=== PATIENT | male | born 1940 | race Caucasian/White ===

== ENCOUNTER 2017-02-23 07:48 | Day surgery (SDC) | payer OTHER ==
[~2017-02-23 07:48] MED LIST: PROPOFOL INJ 200 MG/20 ML VIAL IV ONE
[2017-02-23 09:44] VITALS: BP 113/96
--- NOTE | 2017-02-23 12:55 | Operative Report ---
Operative Report DATE OF SURGERY: 02/23/17 Operative Report: The risks, benefits and alternatives of the procedure including risks of bleeding, perforation requiring surgery are explained to the patient detail and informed consent is obtained. Patient was taken back to the endoscopy suite and placed in the left, lateral decubital position. Timeout was called. Propofol medication is provided. A rectal examination was done which did not reveal any masses, tears or fissures. An Olympus videoscope was inserted into the patient's rectum. The scope was then carefully advanced all the way to the cecum. The cecum was identified by the usual anatomical landmarks including the ileocecal valve as well as the appendiceal office. Photodocumentation is obtained. Scope was then sequentially pulled back via the various segments of the colon including the ascending colon, hepatic flexure, transverse colon, splenic flexure, descending colon finding to the rectosigmoid portions of the colon. Retroflexion maneuvers performed. The risks benefits and alternatives of the procedure explained to the patient in detail and informed consent is obtained.A GIF Olympus video scope was inserted into the patient's mouth and hypopharynx, the esophagus is identified intubated and insufflated, the scope was then advanced through the esophagus stomach and duodenum, retroflexion maneuver is done, the esophagus stomach and first and second portions of the duodenum examined PREOPERATIVE DIAGNOSIS: Personal history of colon polyps. Ongoing weight loss with anorexia POSTOPERATIVE DIAGNOSIS: Gastritis, gastric ulcers. Duodenitis, duodenal ulcers. Biopsies obtained to rule out for Helicobacter pylori. Right-sided colon inflammation status post biopsy. Diverticulosis. Internal hemorrhoids OPERATION: Colonoscopy with biopsy. EGD with biopsy SURGEON: PRETTY HERMAN ANESTHESIA: LMAC TISSUE REMOVED OR ALTERED: As noted above. COMPLICATIONS: None. ESTIMATED BLOOD LOSS: None. INTRAOPERATIVE FINDINGS: As noted above. PROCEDURE: Patient tolerated procedure well. No immediate postprocedure complications are noted. Patient discharged in good condition. Discharge date 02/23/2017. Discharge diet: Regular. Discharge activity: Regular. 2-3 week follow-up to discuss findings. Patient is instructed to call the office or proceed to the emergency room should there be any further problems or questions. We will wait on pathology.
== END 2017-02-23 09:55 | disposition home or self-care (01) ==
LOC: END 07:48
PROVIDERS: ATTEND Internal Medicine Gastroenterology
PROC: 0DB98ZX Excision of Duodenum, Via Natural or Artificial Opening Endoscopic, Diagnostic (ICD-10-PCS; 2017-02-23)
PROC: 0DB68ZX Excision of Stomach, Via Natural or Artificial Opening Endoscopic, Diagnostic (ICD-10-PCS; principal; 2017-02-23 09:30)
PROC: 0DBF8ZX Excision of Right Large Intestine, Via Natural or Artificial Opening Endoscopic, Diagnostic (ICD-10-PCS; 2017-02-23 09:30)
DX: Z12.11 Encounter for screening for malignant neoplasm of colon (principal); R63.4 Abnormal weight loss; K29.50 Unspecified chronic gastritis without bleeding; K29.80 Duodenitis without bleeding; K52.9 Noninfective gastroenteritis and colitis, unspecified; K57.30 Diverticulosis of large intestine without perforation or abscess without bleeding; K64.8 Other hemorrhoids; E78.00 Pure hypercholesterolemia, unspecified; I12.9 Hypertensive chronic kidney disease with stage 1 through stage 4 chronic kidney disease, or unspecified chronic kidney disease; N18.3 Chronic kidney disease, stage 3 (moderate); Z85.46 Personal history of malignant neoplasm of prostate; Z79.899 Other long term (current) drug therapy; Z68.38 Body mass index [BMI] 38.0-38.9, adult
CPT/HCPCS: 43239; 45380; 88342 ×2; 88305 ×2; J2704; 810

== ENCOUNTER 2017-05-01 07:10 | Day surgery (SDC) | payer OTHER ==
[2017-05-01] MEDS ORDERED: DIPHENHYDRAMINE HCL 50 MG/ML VIAL ONE (07:27)
[2017-05-01] MEDS ORDERED: NALOXONE HCL INJ/PF 0.4 MG/1 ML SDV ONE (07:28)
[2017-05-01] MEDS ORDERED: ONDANSETRON HCL INJ/PF 4 MG/2 ML SDV ONE (07:28)
[2017-05-01] MEDS ORDERED: FENTANYL CITRATE INJ/PF 100 MCG/2 ML AMPUL ONE (07:29)
[2017-05-01] MEDS ORDERED: GLUCAGON,HUMAN RECOMB 1 MG INJ ONE (07:29)
[2017-05-01] MEDS ORDERED: FLUMAZENIL INJ 0.5 MG/5 ML VIAL ONE (07:29)
[2017-05-01] MEDS ORDERED: EPINEPHRINE INJ 1 MG/10 ML DISP.SYRIN ONE (07:29)
[2017-05-01] MEDS: MIDAZOLAM 2 MG/2 ML INJ ONE ×2 (08:17→08:21)
--- NOTE | 2017-05-01 08:30 | Operative Report ---
Operative Report DATE OF SURGERY: 05/01/17 Operative Report: The risks benefits and alternatives of the procedure explained to the patient in detail and informed consent is obtained.A GIF Olympus video scope was inserted into the patient's mouth and hypopharynx, the esophagus is identified intubated and insufflated, the scope was then advanced through the esophagus stomach and duodenum ,retroflexion maneuver is done, the esophagus stomach and first and second portions of the duodenum examined PREOPERATIVE DIAGNOSIS: Follow-up gastritis POSTOPERATIVE DIAGNOSIS: Gastritis is healing, biopsies obtained. 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 Conscious sedation monitoring time 30 minutes. TISSUE REMOVED OR ALTERED: Gastric mucosal specimen obtained COMPLICATIONS: None. ESTIMATED BLOOD LOSS: None. INTRAOPERATIVE FINDINGS: As noted above. PROCEDURE: Patient tolerated procedure well. No immediate postprocedure complications are noted. Patient discharged in good condition. Discharge date 05/01/2017. Discharge diet: Regular. Discharge activity: Regular. 2-3 week follow-up to discuss findings. Patient is instructed to call the office or proceed to the emergency room should there be any further problems or questions. We will wait on pathology.
[2017-05-01 09:39] VITALS: BP 130/67
== END 2017-05-01 09:40 | disposition home or self-care (01) ==
LOC: END 07:10
PROVIDERS: ATTEND Internal Medicine Gastroenterology
PROC: 0DB98ZX Excision of Duodenum, Via Natural or Artificial Opening Endoscopic, Diagnostic (ICD-10-PCS; 2017-05-01)
PROC: 0DB68ZX Excision of Stomach, Via Natural or Artificial Opening Endoscopic, Diagnostic (ICD-10-PCS; principal; 2017-05-01 08:00)
DX: K31.9 Disease of stomach and duodenum, unspecified (principal); K29.80 Duodenitis without bleeding; I10 Essential (primary) hypertension; Z09 Encounter for follow-up examination after completed treatment for conditions other than malignant neoplasm; Z87.19 Personal history of other diseases of the digestive system
CPT/HCPCS: 43239; 88342 ×2; 88305 ×2; J2250; J3010; J0171; J1200; J1610; J2310; J2405; J3490

== ENCOUNTER 2019-09-21 10:53 | Day surgery (SDC) | payer OTHER ==
[~2019-09-21 10:53] MED LIST changes: +CHONDR SU A NA/HYALUR INTRAOC KIT (SURGICARE) ONE; +EPINEPHRINE INJ/PF 1 MG/1 ML AMPULE ONE; +KETOROLAC TROMETHAMINE 0.45% 4 DROP/0.4 ML DROPERETTE OD PRN; +LIDOCAINE 1%/PHENYLEPHRINE 1.5% 1 ML VIAL ONE; -PROPOFOL INJ 200 MG/20 ML VIAL IV ONE
[2019-09-21] MEDS: CYCLOPENTOLATE 0.2%/PHENYLEPHRINE 1% OPH SOLN 2 ML OD PRN ×3 (11:25→11:45)
[2019-09-21] MEDS: TROPICAMIDE 1% OPH SOLN 15 ML OD PRN ×3 (11:25→11:45)
[2019-09-21] MEDS: BESIFLOXACIN HCL 0.6% OPH SUSP 5 ML BOTTLE OD PRN ×4 (11:25→12:15)
[2019-09-21] MEDS: TETRACAINE HCL 0.5% OPH SOLN 4 ML OD PRN ×3 (11:26→11:50)
[2019-09-21] MEDS ORDERED: MIDAZOLAM 2 MG/2 ML INJ ONE (11:30)
[2019-09-21] MEDS: DORZOLAMIDE HCL 2%/TIMOLOL MALEAT 0.5% OPH SOLN 10 ML OD PRN ×2 (12:15)
--- NOTE | 2019-09-21 13:33 | Operative Report ---
Operative Report-[facility] Operative Report: DATE OF SURGERY: September 21, 2019 PREOPERATIVE DIAGNOSIS: NUCLEAR CATARACT, RIGHT EYE. POSTOPERATIVE DIAGNOSIS: NUCLEAR CATARACT, RIGHT EYE. PROCEDURE PERFORMED: PHACOEMULSIFICATION WITH POSTERIOR CHAMBER INTRAOCULAR LENS IMPLANT, RIGHT EYE. SURGEON: Tino Molina DO MEDICATIONS AND ANESTHESIA: Versed: IV Versed Tetracaine drops: 1 to 2 drops given as needed COMPLICATION: None INDICATIONS FOR SURGERY: Medical necessity: Best corrected visual acuity worse than 20/40 secondary to cataracts with impairment of ability to carry out needs or desired activities, blurred vision, visual distortion, reduced contrast sensitivity and/or glare with association functional impairment and supporting documentation/testing, and cataracts causing symptomatic impairment of visual functions not corrected with tolerable changes in glasses or contact lenses interfering with activities of daily life. PROCEDURE: Consent: The risks, benefits and alternatives of this procedures was discussed with the patient. The patient read and signed the consent forms, was identified and was seated in the exam chair. IOL: MX 60 E 15.0 IOL Diopters: Phacoemulsification with posterior chamber intraocular lens implant: The face was prepped with 5% povidone iodine solution, and a few drops of 5% povidone iodine solution was instilled into the inferior fornix. A non-fenestrated drape was placed over the eye and the lids were parted with the speculum. A paracentesis was made with a 15 degree blade, and 1% lidocaine MPF followed by viscoelastic was injected into the anterior chamber. A 2.4 mm metal micro- keratome was used to create a temporal clear corneal incision. A circular anterior capsulorrhexis was created, followed by hydro-dissection and hydro- delineation. The phacoemulsification hand piece was inserted and the nucleus was removed with the Phaco chop technique. The irrigation-aspiration hand piece was used to remove the residual cortex, and vacuum the posterior capsule. The capsular bag was inflated and viscoelastic and the above-mentioned IOL was injected into the eye with care to insert both leaning and trailing haptics in the capsular bag. The irrigation/aspiration hand piece was reinserted to remove residual viscoelastic from the capsular bag and anterior chamber. The corneal incision was hydrated, and anterior chamber was inflated with sterile BSS via the paracentesis site, and found to be watertight. Postop medication: 1 drop of prednisolone into operative by followed by 1 drop of Cosopt into operative eye followed by 1 drop of Besivance intraoperative by other:
== END 2019-09-21 12:55 | disposition home or self-care (01) ==
LOC: SC 10:53
PROVIDERS: ATTEND Ophthalmology
DX: H25.11 Age-related nuclear cataract, right eye (principal); I10 Essential (primary) hypertension; Z79.899 Other long term (current) drug therapy; Z79.82 Long term (current) use of aspirin; Z87.891 Personal history of nicotine dependence; Z85.46 Personal history of malignant neoplasm of prostate
CPT/HCPCS: 66984; V2632; J2250; J3490 ×2; A9270; J0171; 142

== ENCOUNTER 2019-10-05 11:57 | Day surgery (SDC) | payer OTHER ==
[~2019-10-05 11:57] MED LIST changes: -CHONDR SU A NA/HYALUR INTRAOC KIT (SURGICARE) ONE; -EPINEPHRINE INJ/PF 1 MG/1 ML AMPULE ONE; -KETOROLAC TROMETHAMINE 0.45% 4 DROP/0.4 ML DROPERETTE OD PRN; +KETOROLAC TROMETHAMINE 0.45% 4 DROP/0.4 ML DROPERETTE OS PRN; -LIDOCAINE 1%/PHENYLEPHRINE 1.5% 1 ML VIAL ONE
[2019-10-05] MEDS: CYCLOPENTOLATE 0.2%/PHENYLEPHRINE 1% OPH SOLN 2 ML OS PRN ×3 (12:38→12:54)
[2019-10-05] MEDS: BESIFLOXACIN HCL 0.6% OPH SUSP 5 ML BOTTLE OS PRN ×4 (12:38→13:16)
[2019-10-05] MEDS: TROPICAMIDE 1% OPH SOLN 15 ML OS PRN ×3 (12:38→12:55)
[2019-10-05] MEDS: TETRACAINE HCL 0.5% OPH SOLN 4 ML OS PRN ×3 (12:38→12:57)
[2019-10-05] MEDS ORDERED: FENTANYL CITRATE INJ/PF 100 MCG/2 ML AMPUL ONE (12:39)
[2019-10-05] MEDS ORDERED: MIDAZOLAM 2 MG/2 ML INJ ONE (12:39)
[2019-10-05] MEDS: EPINEPHRINE INJ/PF 1 MG/1 ML AMPULE ONE ×2 (13:02→13:05)
[2019-10-05] MEDS: LIDOCAINE 1%/PHENYLEPHRINE 1.5% 1 ML VIAL ONE ×2 (13:02→13:05)
[2019-10-05] MEDS: CHONDR SU A NA/HYALUR INTRAOC KIT (SURGICARE) ONE ×2 (13:03→13:05)
[2019-10-05] MEDS: DORZOLAMIDE HCL 2%/TIMOLOL MALEAT 0.5% OPH SOLN 10 ML OS PRN ×2 (13:16)
--- NOTE | 2019-10-05 14:06 | Operative Report ---
Operative Report-[facility] Operative Report: DATE OF SURGERY: October 05, 2019 PREOPERATIVE DIAGNOSIS: NUCLEAR CATARACT, LEFT EYE. POSTOPERATIVE DIAGNOSIS: NUCLEAR CATARACT, LEFT EYE. PROCEDURE PERFORMED: PHACOEMULSIFICATION WITH POSTERIOR CHAMBER INTRAOCULAR LENS IMPLANT, LEFT EYE. SURGEON: Tino Molina DO MEDICATIONS AND ANESTHESIA: Versed: IV Versed Tetracaine drops: 1 to 2 drops given as needed COMPLICATION: None INDICATIONS FOR SURGERY: Medical necessity: Best corrected visual acuity worse than 20/40 secondary to cataracts with impairment of ability to carry out needs or desired activities, blurred vision, visual distortion, reduced contrast sensitivity and/or glare with association functional impairment and supporting documentation/testing, and cataracts causing symptomatic impairment of visual functions not corrected with tolerable changes in glasses or contact lenses interfering with activities of daily life. PROCEDURE: Consent: The risks, benefits and alternatives of this procedures was discussed with the patient. The patient read and signed the consent forms, was identified and was seated in the exam chair. IOL: MX 60 E 16.5 IOL Diopters: Phacoemulsification with posterior chamber intraocular lens implant: The face was prepped with 5% povidone iodine solution, and a few drops of 5% povidone iodine solution was instilled into the inferior fornix. A non-fenestrated drape was placed over the eye and the lids were parted with the speculum. A paracentesis was made with a 15 degree blade, and 1% lidocaine MPF followed by viscoelastic was injected into the anterior chamber. A 2.4 mm metal micro- keratome was used to create a temporal clear corneal incision. A circular anterior capsulorrhexis was created, followed by hydro-dissection and hydro- delineation. The phacoemulsification hand piece was inserted and the nucleus was removed with the Phaco chop technique. The irrigation-aspiration hand piece was used to remove the residual cortex, and vacuum the posterior capsule. The capsular bag was inflated and viscoelastic and the above-mentioned IOL was injected into the eye with care to insert both leaning and trailing haptics in the capsular bag. The irrigation/aspiration hand piece was reinserted to remove residual viscoelastic from the capsular bag and anterior chamber. The corneal incision was hydrated, and anterior chamber was inflated with sterile BSS via the paracentesis site, and found to be watertight. Postop medication:1 drop of prednisolone into operative by followed by 1 drop of Cosopt into operative eye followed by 1 drop of Besivance intraoperative by Other:
== END 2019-10-05 14:01 | disposition home or self-care (01) ==
LOC: SC 11:57
PROVIDERS: ATTEND Ophthalmology
DX: H25.12 Age-related nuclear cataract, left eye (principal); Z98.41 Cataract extraction status, right eye; Z79.82 Long term (current) use of aspirin; Z79.899 Other long term (current) drug therapy; Z87.891 Personal history of nicotine dependence; I10 Essential (primary) hypertension; Z85.46 Personal history of malignant neoplasm of prostate
CPT/HCPCS: 66984; V2632; J2250; J3490 ×2; A9270; J0171; 142; J3010

== ENCOUNTER 2020-01-18 13:19 | Inpatient (IN) | payer OTHER, MEDICARE ==
[2020-01-18] MEDS ORDERED: NORMAL SALINE 1000 ML 1,000 ML IV ONE ×2 (14:58→20:22)
--- NOTE | 2020-01-18 15:03 | ER Document Report ---
ED General - General Chief Complaint: Altered Mental Status Stated Complaint: ALTERED MENTAL STATUS Time Seen by Provider: 01/18/20 14:22 Mode of Arrival: Stretcher Information source: Parent Notes: 79-year-old male brought in at the request of his stating that he is becoming more confused over the past 3 days. Patient has a history of dementia. states that she is increasingly having difficulty taking care of him. Coming here to see about getting him placed in a long-term care facility with memory care specialty. She reports that he has been drinking less eating l ess over the past 3 days. Does not note any fevers or chills or vomiting or diarrhea. TRAVEL OUTSIDE OF THE [place] IN LAST 30 DAYS: No - Related Data Allergies/Adverse Reactions: No Known Allergies Allergy (Verified 01/18/20 13:34) Home Medications: Amlod/olmesa, donepezil, lomotil, pantoprazole, sertaline, Zocor, ASA, Echinacea, Glucosamine, theragram, Past Medical History - Social History Smoking Status: Former Smoker Family History: Other - Patient is demented and cannot give an accurate family history Patient has homicidal ideation: No - Past Medical History Cardiac Medical History: Reports: Hx Coronary Artery Disease, Hx Hypertension Denies: Hx Heart Attack Pulmonary Medical History: Denies: Hx Asthma, Hx Bronchitis, Hx COPD, Hx Pneumonia Neurological Medical History: Denies: Hx Cerebrovascular Accident, Hx Seizures GI Medical History: Denies: Hx Hepatitis, Hx Hiatal Hernia, Hx Ulcer Musculoskeletal Medical History: Denies Hx Arthritis Infectious Medical History: Denies: Hx Hepatitis Past Surgical History: Denies: Hx Open Heart Surgery, Hx Pacemaker - Immunizations Hx Diphtheria, Pertussis, Tetanus Vaccination: No - Unsure Review of Systems - Review of Systems Notes: Constitutional: No fevers. No chills. EENT: No eye redness. No eye pain. No ear pain. No sore throat. Cardiovascular: No chest pain. No palpitations. Respiratory: No cough. No shortness of breath. No respiratory distress. Gastrointestinal: No abdominal pain. No nausea, vomiting, or diarrhea. Genitourinary: Atraumatic. No lesions. No pain. No discharge. Musculoskeletal: Atraumatic. No swelling. No deformities. Skin: No rash or lesions. Lymphatic: No swollen lymph nodes. Neurologic: No headache. No syncope. Positive increasing mental decline Psychiatric: No suicidal or homicidal ideation. Physical Exam - Vital signs Vitals: Pulse Ox 88 L 01/18/20 13:29 - Notes Notes: General: Well-developed, well-nourished. In no acute distress. Non-toxic appearing. Cardiac: Well-perfused. Regular rate and rhythm. No murmurs, rubs, or gallops. Pulmonary: No respiratory distress. No cyanosis. Bilateral lung bennett are clear to auscultation. Abdominal: Non-distended. Non-rigid. Bowels sounds are present in all four quadrants. No guarding or rebound. HEENT: Head is atraumatic. Conjunctivae not reddened. No tearing. PERRL. EOMI. Orbits atraumatic. No periorbital swelling or erythema. Oropharynx is without erythema, swelling, or exudates. Tongue does appear quite dry Neck: Supple. No adenopathy. No meningismus. Dermatologic: Warm with good turgor. No rash. Atraumatic. Chest: Atraumatic. No chest wall tenderness to palpation. Musculoskeletal: Moves all extremities well. No range of motion deficits. no muscular or joint tenderness. No paraspinal muscle tenderness. no midline spinal tenderness or step-off. Genitourinary: Examination deferred Neurologic: No gross neurologic deficits. Psychiatric: Normal mood. Course - Re-evaluation Re-evalutation: 01/18/20 15:02 Patient looks actually quite well for his age. Exam does reveal what looks like some dry oral membranes. Possibility of dehydration or hyponatremia naturally. Will check basic labs and a chest x-ray and a urine to see if there is any source for infection that might be driving the worsening mental status decline. 01/18/20 20:19 Discussed the case with Dr. Ge in the ER. Patient does have some dehydration clinically and on his lab work. I discussed the case with Dr. Buchanan the hospitalist this evening and he feels that it is a pretty marginal reason to admit the patient. He did recommend keeping him overnight in the ER for some fluids and let the lead case manager sort out what to do next. - Vital Signs Vital signs: Temp Pulse Resp BP Pulse Ox 97.8 F 90 25 H 115/73 91 L 01/25/20 10:52 01/25/20 10:52 01/25/20 10:52 01/25/20 10:52 01/25/20 10:52 - Laboratory Result Diagrams: 01/25/20 04:42 01/25/20 04:42 Laboratory results interpreted by me: 01/18/20 01/18/20 01/18/20 15:30 16:35 18:32 WBC 2.5 L RBC 4.02 L Hgb Hct MCV 100 H MCH 34.9 H Plt Count [place] % (Auto) 16.2 H Absolute Neuts (auto) 1.5 L Band Neutrophils % Abs Neuts (Manual) Sodium 135.5 L Carbon Dioxide 19 L BUN 41 H Creatinine 1.88 H Est GFR ( Amer) 42 L Est GFR (MDRD) Non-Af 35 L Glucose Calcium AST 71 H ALT 57 H Creatine Kinase NT-Pro-B Natriuret Pep Total Protein Albumin Urine Protein 100 H Urine Ketones 20 H Urine Blood SMALL H Urine Ascorbic Acid 20 H COVID-19 (IAN) 01/19/20 01/20/20 01/20/20 05:16 20:08 20:47 WBC 2.3 L RBC 3.80 L Hgb 13.3 L Hct MCV 101 H MCH 35.0 H Plt Count [place] % (Auto) Absolute Neuts (auto) 1.6 L Band Neutrophils % Abs Neuts (Manual) Sodium 135.1 L Carbon Dioxide 19 L BUN 44 H Creatinine 1.52 H Est GFR ( Amer) 54 L Est GFR (MDRD) Non-Af 44 L Glucose 128 H Calcium AST ALT Creatine Kinase NT-Pro-B Natriuret Pep Total Protein Albumin Urine Protein 30 H Urine Ketones Urine Blood MODERATE H Urine Ascorbic Acid COVID-19 (IAN) 01/20/20 01/20/20 01/21/20 21:02 21:02 07:53 WBC RBC Hgb Hct MCV MCH Plt Count [place] % (Auto) Absolute Neuts (auto) Band Neutrophils % Abs Neuts (Manual) Sodium 130.7 L Carbon Dioxide BUN 33 H Creatinine Est GFR ( Amer) Est GFR (MDRD) Non-Af Glucose 188 H Calcium 8.3 L AST 91 H ALT 69 H Creatine Kinase 356 H NT-Pro-B Natriuret Pep 1580 H Total Protein 6.2 L Albumin 3.3 L Urine Protein Urine Ketones Urine Blood Urine Ascorbic Acid COVID-19 (IAN) DETECTED A 01/21/20 08:47 WBC 2.0 L RBC 3.66 L Hgb 12.6 L Hct 35.6 L MCV MCH 34.3 H Plt Count 147 L [place] % (Auto) Absolute Neuts (auto) Band Neutrophils % 2 L Abs Neuts (Manual) 1.3 L Sodium Carbon Dioxide BUN Creatinine Est GFR ( Amer) Est GFR (MDRD) Non-Af Glucose Calcium AST ALT Creatine Kinase NT-Pro-B Natriuret Pep Total Protein Albumin Urine Protein Urine Ketones Urine Blood Urine Ascorbic Acid COVID-19 (IAN) Discharge - Discharge Clinical Impression: History of dementia, Dehydration, Low oxygen saturation Pneumonia Qualifiers: Pneumonia type: aspiration pneumonia Aspiration pneumonia type: due to gastric secretions Laterality: left Lung location: lower lobe of lung Qualified Code(s): J69.0 - Pneumonitis due to inhalation of food and vomit Condition: Fair Disposition: ADMITTED INPATIENT
--- NOTE | 2020-01-18 15:25 | RADIOLOGY REPORT (SQ) ---
EXAM DESCRIPTION: CHEST SINGLE VIEW IMAGES COMPLETED DATE/TIME: 01/18/2020 3:16 pm REASON FOR STUDY: weakness COMPARISON: None. EXAM PARAMETERS: NUMBER OF VIEWS: One view. TECHNIQUE: Single frontal radiographic view of the chest acquired. RADIATION DOSE: NA LIMITATIONS: None. FINDINGS: LUNGS AND PLEURA: No opacities, masses or pneumothorax. No pleural effusion. MEDIASTINUM AND HILAR STRUCTURES: No masses. Contour normal. HEART AND VASCULAR STRUCTURES: Heart normal in size. Normal vasculature. BONES: No acute findings. HARDWARE: None in the chest. OTHER: No other significant finding. IMPRESSION: NO ACUTE RADIOGRAPHIC FINDING IN THE CHEST. TECHNICAL DOCUMENTATION: JOB ID: [id number] [address] [employer]- All Rights Reserved Reading location - IP/workstation name: [email or web address]
[2020-01-18 15:35] LABS: ABSOLUTE LYMPHOCYTES (AUTO) 0.6 10^3/uL (0.5-4.7); ABSOLUTE MONOCYTES (AUTO) 0.4 10^3/uL (0.1-1.4); ABSOLUTE NEUT (AUTO) 1.5 10^3/uL (1.7-8.2); BASOPHILS % (AUTO) 0.4 % (0-2); EOSINOPHILS % (AUTO) 0.1 % (0-6); HEMATOCRIT 40.2 % (37.9-51.0); LYMPHOCYTES % (AUTO) 22.9 % (13-45); MEAN CORPUSCULAR HEMOGLOBIN 34.9 pg (27.0-33.4); MEAN CORPUSCULAR HGB CONC 34.8 g/dL (32.0-36.0); MEAN CORPUSCULAR VOLUME 100 fl (80-97); MONOCYTES % (AUTO) 16.2 % (3-13); PLATELET COUNT 151 10^3/uL (150-450); RED BLOOD COUNT 4.02 10^6/uL (4.35-5.55); RED CELL DISTRIBUTION WIDTH 13.2 % (11.5-14.0); SEGMENTED NEUTROPHILS % (AUTO) 60.4 % (42-78); TOTAL CELLS COUNTED % (AUTO) 100 %; WHITE BLOOD COUNT 2.5 10^3/uL (4.0-10.5)
[2020-01-18 17:06] LABS: ALBUMIN 4.1 g/dL (3.5-5.0); ALKALINE PHOSPHATASE 48 U/L (38-126); ANION GAP 16 (5-19); ASPARTATE AMINO TRANSFERASE 71 U/L (17-59); BILIRUBIN,DIRECT 0.4 mg/dL (0.0-0.4); BILIRUBIN,TOTAL 0.5 mg/dL (0.2-1.3); BLOOD UREA NITROGEN 41 mg/dL (7-20); CALCIUM 8.7 mg/dL (8.4-10.2); CARBON DIOXIDE 19 mmol/L (22-30); CHLORIDE 101 mmol/L (98-107); GLUCOSE 75 mg/dL (75-110)
[2020-01-18 18:46] LABS: APPEARANCE,URINE SLIGHTLY-CLOUDY; BILIRUBIN,URINE NEGATIVE (NEGATIVE); COLOR,URINE YELLOW; GLUCOSE, URINE NEGATIVE (NEGATIVE); KETONES,URINE 20 mg/dL (NEGATIVE); PROTEIN,URINE 100 mg/dL (NEGATIVE); URINE SPECIFIC GRAVITY 1.018; UROBILINOGEN,URINE NEGATIVE mg/dL (<2.0)
--- NOTE | 2020-01-18 22:06 | EKG REPORT ---
SEVERITY:- ABNORMAL ECG - ATRIAL FIBRILLATION, V-RATE 76-94 NONSPECIFIC T ABNORMALITIES, ANTERIOR LEADS : Confirmed by: Aliyah Gorman 18-Jan-2020 22:05:42
[2020-01-19 05:58] LABS: ANION GAP 14 (5-19); BLOOD UREA NITROGEN 44 mg/dL (7-20); CALCIUM 8.8 mg/dL (8.4-10.2); CARBON DIOXIDE 19 mmol/L (22-30); CHLORIDE 102 mmol/L (98-107); GLUCOSE 128 mg/dL (75-110); POTASSIUM 3.7 mmol/L (3.6-5.0)
--- NOTE | 2020-01-19 18:11 | ER Document Report ---
Doctor's Note Notes: 01/19/20 18:10 The patient is noted to be resting comfortably. I reviewed his chart and lab work and found that he does have a rather high BUN, but reasonably normal creatinine for his age. There are no previous visits here with lab work for comparison. I am told that he will be discharged home Thursday with his and with home hospice to help take care of him at home.
[2020-01-20] MEDS ORDERED: ACETAMINOPHEN 325 MG TABLET PO ONE (17:49)
[2020-01-20] MEDS ORDERED: DEXTROSE 5%-LACTATED RINGERS 1,000 ML IV ONE (17:53)
[2020-01-20] MEDS ORDERED: IPRATROPIUM/ALBUTEROL 0.5-2.5 MG/3 ML AMPUL NEB ONE (17:56)
--- NOTE | 2020-01-20 17:56 | ER Document Report ---
Doctor's Note Notes: 01/20/20 17:54 The plan to discharge patient home with his this morning fell through when it turns out the hospice group that was supposed to take care of him does not provide services in this area. I learned this afternoon that the patient had not been receiving any of his medications, and had not been eating or drinking. I went into reevaluate him and found him resting comfortably, I did notice some wheezes on chest auscultation. His skin is warm and was found to have low-grade fever. The patient does have some mottling to the skin on the anterior thighs and the knees. The skin to the lower extremities is warm to touch. He received Tylenol. Med reconciliation's were done and he will receive the medications he is normally taking at home other than some vitamins and prn medication that is not an essential med this time. I did a more thorough review of patient records that are available he had never had an EKG done here prior to 01/18/2020 and that EKG showed him to be in atrial fibrillation. I cannot tell from medical records if that is a new finding. 01/20/20 19:20 Chest x-ray shows patchy left basilar airspace opacity and mild bilateral interstitial prominence.
--- NOTE | 2020-01-20 18:21 | RADIOLOGY REPORT (SQ) ---
EXAM DESCRIPTION: CHEST SINGLE VIEW IMAGES COMPLETED DATE/TIME: 01/20/2020 6:11 pm REASON FOR STUDY: Fever COMPARISON: 01/18/2020 TECHNIQUE: Single frontal radiographic view of the chest acquired. NUMBER OF VIEWS: One view. LIMITATIONS: None. FINDINGS: LUNGS AND PLEURA: No pneumothorax. Patchy left basilar airspace opacities. Mild intersti tial prominence bilaterally. No significant Pleural effusion. MEDIASTINUM AND HILAR STRUCTURES: Stable. HEART AND VASCULAR STRUCTURES: Stable. BONES: No acute findings. HARDWARE: None in the chest. OTHER: No other significant finding. IMPRESSION: Patchy left basilar airspace opacities. Mild interstitial prominence bilaterally. TECHNICAL DOCUMENTATION: JOB ID: [id number] [place]-[id number] 2010 [employer]- All Rights Reserved Reading location - IP/workstation name: [email or web address]
[2020-01-20 20:20] LABS: ABSOLUTE LYMPHOCYTES (AUTO) 0.5 10^3/uL (0.5-4.7); ABSOLUTE MONOCYTES (AUTO) 0.2 10^3/uL (0.1-1.4); ABSOLUTE NEUT (AUTO) 1.6 10^3/uL (1.7-8.2); BASOPHILS % (AUTO) 0.5 % (0-2); EOSINOPHILS % (AUTO) 0.1 % (0-6); HEMATOCRIT 38.4 % (37.9-51.0); HEMOGLOBIN 13.3 g/dL (13.5-17.0); LYMPHOCYTES % (AUTO) 22.2 % (13-45); MEAN CORPUSCULAR HGB CONC 34.7 g/dL (32.0-36.0); MEAN CORPUSCULAR VOLUME 101 fl (80-97); MONOCYTES % (AUTO) 7.3 % (3-13); PLATELET COUNT 153 10^3/uL (150-450); RED CELL DISTRIBUTION WIDTH 13.6 % (11.5-14.0); SEGMENTED NEUTROPHILS % (AUTO) 69.9 % (42-78); TOTAL CELLS COUNTED % (AUTO) 100 %; WHITE BLOOD COUNT 2.3 10^3/uL (4.0-10.5)
[2020-01-20 21:25] LABS: APPEARANCE,URINE SLIGHTLY-CLOUDY; BILIRUBIN,URINE NEGATIVE (NEGATIVE); COLOR,URINE YELLOW; GLUCOSE, URINE NEGATIVE (NEGATIVE); KETONES,URINE NEGATIVE (NEGATIVE); LEUKOCYTE ESTERASE,URINE NEGATIVE (NEGATIVE); NITRITE,URINE NEGATIVE (NEGATIVE); PROTEIN,URINE 30 mg/dL (NEGATIVE); UROBILINOGEN,URINE NEGATIVE mg/dL (<2.0)
[2020-01-20 21:27] LABS: ALBUMIN 3.3 g/dL (3.5-5.0); ALKALINE PHOSPHATASE 41 U/L (38-126); ANION GAP 7 (5-19); ASPARTATE AMINO TRANSFERASE 91 U/L (17-59); BILIRUBIN,DIRECT 0.3 mg/dL (0.0-0.4); BILIRUBIN,TOTAL 0.4 mg/dL (0.2-1.3); BLOOD UREA NITROGEN 33 mg/dL (7-20); CALCIUM 8.3 mg/dL (8.4-10.2); CARBON DIOXIDE 24 mmol/L (22-30); CHLORIDE 100 mmol/L (98-107); CREATINE KINASE 356 U/L (55-170); GLUCOSE 188 mg/dL (75-110); POTASSIUM 3.6 mmol/L (3.6-5.0); TOTAL PROTEIN 6.2 g/dL (6.3-8.2)
[2020-01-20 21:38] LABS: TROPONIN I 0.026 ng/mL
[2020-01-20] MEDS ORDERED: (PENDING PHARMACY ID) (Donepezil Hcl [Donepezil Hcl] 10 MG) PO SCH (22:00)
[2020-01-20] MEDS ORDERED: (PENDING PHARMACY ID) (Simvastatin [Simvastatin] 20 MG) PO SCH (22:00)
[2020-01-20] MEDS ORDERED: BENAZEPRIL HCL 20 MG TABLET PO ONE (22:00)
[2020-01-20] MEDS ORDERED: AMLODIPINE BESYLATE 5 MG TABLET PO ONE (22:00)
[2020-01-20] MEDS: SIMVASTATIN 10 MG TABLET PO SCH (22:11)
[2020-01-20] MEDS: DONEPEZIL HCL 5 MG TABLET PO SCH (22:12)
[2020-01-21] MEDS ORDERED: NORMAL SALINE 500 ML IV ONE (07:02)
[2020-01-21] MEDS ORDERED: CEFEPIME 2 GM/D5W RTU 2 GM/50 ML RTUPB IV ONE (07:03)
[2020-01-21] MEDS ORDERED: VANCOMYCIN HCL INJ 1000 MG VIAL IV ONE (07:04)
[2020-01-21] MEDS ORDERED: ACETAMINOPHEN 325 MG TABLET PO ONE (07:05)
--- NOTE | 2020-01-21 07:20 | ER Document Report ---
Entered by HUSSEIN MORGAN SCRIBE 01/21/20 0715 Acting as scribe for:JOHNNY HENRIQUEZ MD Doctor's Note Notes: 01/21/20 07:16 Notified this a.m. that patient has a temperature of 102+. Reviewed chart patient received Tylenol yesterday for a low-grade temperature and blood work including blood cultures and chest x-ray were done. Patient's chest x-ray has changed from the previous chest x-ray on 1014 and he now has bibasilar infiltrates infiltrates and opacities. This pneumonia most likely has developed while in the department. Patient is on a social hold pending placement. Patient has history of dementia. Vital signs temperature 102+ see nurses notes and vital signs scheduled for other details. Patient's lungs are diminished in bases and no wheezing mild at this time. Increased expiratory rhonchi. Skin warm to touch. Patient is alert however inaccurate in answering questions. Due to his dementia. Abdomen soft nontender extremities without any edema. Patient has orders now nausea received Tylenol IV fluids 500 mL bolus blood cultures have already been done therefore cefepime and vancomycin has been ordered. Patient also has been placed on continuous monitoring. Assessment and plan new onset pneumonia questionable Covid virus infection. Questionable bacterial pneumonia. Plan today is hospitalist is already requested to visit with patient today to help manage patient as he awaits his placement social placement from the ED. Inasmuch as patient now has fever hypoxia of 90% on room air and a low white blood cell count and pneumonia I will present case to the hospitalist team for admission. I personally performed the services described in the documentation, reviewed and edited the documentation which was dictated to the scribe in my presence, and it accurately records my words and actions.
[2020-01-21 09:17] LABS: HEMATOCRIT 35.6 % (37.9-51.0); HEMOGLOBIN 12.6 g/dL (13.5-17.0); MEAN CORPUSCULAR HEMOGLOBIN 34.3 pg (27.0-33.4); MEAN CORPUSCULAR HGB CONC 35.2 g/dL (32.0-36.0); PLATELET COUNT 147 10^3/uL (150-450); RED BLOOD COUNT 3.66 10^6/uL (4.35-5.55); RED CELL DISTRIBUTION WIDTH 12.9 % (11.5-14.0)
[2020-01-21 09:27] LABS: MEAN CORPUSCULAR VOLUME 97 fl (80-97)
[2020-01-21 09:38] LABS: ABSOLUTE LYMPHOCYTES# (MANUAL) 0.5 10^3/uL (0.5-4.7); ABSOLUTE MONOCYTES # (MANUAL) 0.1 10^3/uL (0.1-1.4); BAND NEUTROPHILS % (MANUAL) 2 % (3-5); BASOPHILS % (MANUAL) 2 % (0-2); EOSINOPHILS % (MANUAL) 0 % (0-6); LYMPHOCYTES % (MANUAL) 26 % (13-45); MONOCYTES % (MANUAL) 6 % (3-13); SEGMENTED NEUTROPHILS % (MAN) 64 % (42-78); TOTAL CELLS COUNTED 50
[2020-01-21 09:39] LABS: OVALOCYTES SLIGHT; PLATELET COMMENT ADEQUATE
--- NOTE | 2020-01-21 09:40 | EKG REPORT ---
SEVERITY:- ABNORMAL ECG - ATRIAL FIBRILLATION, V-RATE 72-99 LEFT AXIS DEVIATION BORDERLINE T ABNORMALITIES, DIFFUSE LEADS : Confirmed by: Aliyah Gorman 21-Jan-2020 09:40:42
[2020-01-21] MEDS ORDERED: (PENDING PHARMACY ID) (Amlodipine Besylate/Benazepril [Amlodipine-Benazepril 5-20 Mg] 1 CA PO SCH (10:00)
[2020-01-21] MEDS ORDERED: SERTRALINE HCL 20 MG PO SCH (10:00)
[2020-01-21] MEDS ORDERED: ONDANSETRON HCL INJ/PF 4 MG/2 ML SDV IV PRN (10:14)
[2020-01-21] MEDS: VITAMIN E (DL, ACETATE) 400 UNIT CAPSULE PO SCH (10:25)
[2020-01-21] MEDS: BENAZEPRIL HCL 20 MG TABLET PO SCH (10:25)
[2020-01-21] MEDS: ASPIRIN 81 MG TABLET, ENT COATED PO SCH (10:25)
[2020-01-21] MEDS: SERTRALINE HCL 50 MG TABLET PO SCH (10:26)
[2020-01-21] MEDS: AMLODIPINE BESYLATE 5 MG TABLET PO SCH (10:26)
[2020-01-21] MEDS: CYANOCOBALAMIN (VITAMIN B-12) 1,000 MCG TABLET PO SCH (10:26)
[2020-01-21] MEDS: ASCORBIC ACID 500 MG TABLET PO SCH (10:26)
[2020-01-21] MEDS: PANTOPRAZOLE SODIUM 40 MG TABLET.DR PO SCH (10:26)
--- NOTE | 2020-01-21 17:19 | PDOC H&P ---
History of Present Illness Admission Date/PCP: 01/21/20 10:57 RIKKI JESUS DO History of Present Illness: HAL ROBIN is a 79 year old male with a history of dementia who was brought here by his a couple of days ago because she could no longer take care of him at home. His dementia combined with his 's frailty and comorbidities made too difficult for her to manage him. He was being held as a social hold in the ER until a placement option could be found. It looks like they were actually planning to consult with hospice. Apparently yesterday evening they had some concern in the ER because they checked a chest x-ray around 1700 hrs. Findings suggestive of pneumonia were noted on the chest x-ray and the ER provider's note. Was also told the patient had a temperature of 100.4 F yesterday evening. No treatment was initiated at that time. They requested a medical consultation overnight. This was passed on to the day shift. When I got the call about the patient this morning, patient had a temperature of 102.1 F and got his first dose of antibiotics around 0700 this morning. Past Medical History Cardiac Medical History: Reports: Coronary Artery Disease, Hypertension Denies: Myocardial Infarction Pulmonary Medical History: Denies: Asthma, Bronchitis, Chronic Obstructive Pulmonary Disease (COPD), Pneumonia Neurological Medical History: Denies: Seizures GI Medical History: Denies: Hepatitis, Hiatal Hernia Musculoskeltal Medical History: Denies: Arthritis Psychiatric Medical History: Denies: Depression - pt confused Hematology: Denies: Anemia, Sickle Cell Disease Past Surgical History Past Surgical History: Denies: Pacemaker Social History Smoking Status: Former Smoker Family History Parental Family History Reviewed: No - Unable to obtain Children Family History Reviewed: No - unAble to obtain Sibling(s) Family History Reviewed.: No - Unable to obtain Medication/Allergy Home Medications: Amlodipine Besylate/Benazepril [Amlodipine-Benazepril 5-20 mg] 1 cap PO DAILY 01/11/14 Simvastatin 20 mg PO QHS 01/11/14 Ascorbic Acid [Vitamin C 500 mg Tablet] 500 mg PO DAILY 09/16/19 Diphenoxylate HCl/Atrop Sulf [Lomotil 2.5 mg Tablet] 1 tab PO Q6HP PRN 09/16/19 Donepezil HCl 10 mg PO QHS 09/16/19 Echinacea 400 mg PO DAILY 09/16/19 Gluc Rodriguez/Chondro Rodriguez A/Vit C/Mn [Glucosamine-Chondroitin Caps] 1 each PO DAILY 09/16/19 Pantoprazole Sodium 40 mg PO DAILY 09/16/19 Aspirin [Ecotrin 81 mg EC Tablet] 81 mg PO DAILY 01/19/20 Cyanocobalamin (Vitamin B-12) [Vitamin B-12 1000 Mcg Tablet] 1,000 mcg PO DAILY 01/19/20 Multivit-Min/FA/Lycopen/Lutein [Centrum Silver Men Tablet] 1 each PO DAILY 01/19/20 Vitamin E (Dl, Acetate) [Vitamin E 400 Unit Capsule] 400 unit PO DAILY 01/19/20 Sertraline HCl [Zoloft 50 mg Tablet] 50 mg PO DAILY 01/20/20 Allergies/Adverse Reactions: No Known Allergies Allergy (Verified 01/18/20 13:34) Review of Systems ROS unobtainable: Due to mental status Physical Exam Vital Signs: Temp Pulse Resp BP Pulse Ox 100.5 F H 85 22 H 146/86 H 99 01/21/20 15:03 01/21/20 15:03 01/21/20 15:03 01/21/20 15:03 01/21/20 15:03 Intake & Output 01/20/20 01/21/20 01/22/20 06:59 06:59 06:59 Intake Total 1000 1000 550 Balance 1000 1000 550 Weight 111 kg General appearance: PRESENT: disheveled, mild distress, morbidly obese, other - He was fidgeting in the bed Head exam: PRESENT: atraumatic, normocephalic Eye exam: PRESENT: EOMI. ABSENT: conjunctival injection, nystagmus, scleral icterus Ear exam: PRESENT: normal external ear exam Mouth exam: PRESENT: dry mucosa, neck supple Teeth exam: PRESENT: poor dentation Neck exam: PRESENT: full ROM. ABSENT: carotid bruit, JVD, lymphadenopathy, meningismus, tenderness, thyromegaly Respiratory exam: PRESENT: rhonchi, symmetrical, tachypnea, unlabored, wheezes - Left lower lobe. ABSENT: accessory muscle use, chest wall tenderness, crackles, prolonged expiratory phas Cardiovascular exam: PRESENT: RRR, +S1, +S2 Pulses: PRESENT: normal carotid pulses Vascular exam: PRESENT: normal capillary refill GI/Abdominal exam: PRESENT: normal bowel sounds, soft. ABSENT: distended, guarding, rebound, tenderness Extremities exam: ABSENT: clubbing, pedal edema Musculoskeletal exam: PRESENT: normal inspection. ABSENT: deformity Neurological exam: PRESENT: awake, oriented to person. ABSENT: oriented to place, oriented to situation Psychiatric exam: PRESENT: anxious Skin exam: PRESENT: warm, other - Sweaty Results Laboratory Results: 01/21/20 08:47 01/20/20 21:02 01/20/20 01/20/20 01/20/20 20:08 20:08 20:47 WBC 2.3 L RBC 3.80 L Hgb 13.3 L Hct 38.4 MCV 101 H MCH 35.0 H MCHC 34.7 RDW 13.6 Plt Count 153 Seg Neutrophils % 69.9 Sodium Potassium Chloride Carbon Dioxide Anion Gap BUN Creatinine Est GFR ( Amer) Est GFR (Non-Af Amer) THERAPIST PHYS Glucose Lactic Acid Calcium Total Bilirubin AST Alkaline Phosphatase Total Protein Albumin Urine Color YELLOW Urine Appearance SLIGHTLY-CLOUDY Urine pH 5.0 Ur Specific [place] 1.020 Urine Protein 30 H Urine Glucose (UA) NEGATIVE Urine Ketones NEGATIVE Urine Blood MODERATE H Urine Nitrite NEGATIVE Ur Leukocyte Esterase NEGATIVE Urine WBC (Auto) 1 Urine RBC (Auto) 3 01/20/20 01/21/20 01/21/20 21:02 08:47 08:47 WBC 2.0 L RBC 3.66 L Hgb 12.6 L Hct 35.6 L MCV 97 D MCH 34.3 H MCHC 35.2 RDW 12.9 Plt Count 147 L Seg Neutrophils % Not Reportable Sodium 130.7 L Potassium 3.6 Chloride 100 Carbon Dioxide 24 Anion Gap 7 BUN 33 H Creatinine 1.15 Est GFR ( Amer) > 60 Est GFR (Non-Af Amer) Glucose 188 H Lactic Acid 0.8 Calcium 8.3 L Total Bilirubin 0.4 AST 91 H Alkaline Phosphatase 41 Total Protein 6.2 L Albumin 3.3 L Urine Color Urine Appearance Urine pH Ur Specific [place] Urine Protein Urine Glucose (UA) Urine Ketones Urine Blood Urine Nitrite Ur Leukocyte Esterase Urine WBC (Auto) Urine RBC (Auto) 01/20/20 01/20/20 21:02 21:02 Creatine Kinase 356 H Troponin I 0.026 NT-Pro-B Natriuret Pep 1580 H Impressions: Chest X-Ray 01/20/20 17:48 IMPRESSION: Patchy left basilar airspace opacities. Mild interstitial prominence bilaterally. Assessment and Plan - Diagnosis (1) Acute hypoxemic respiratory failure Is this a current diagnosis for this admission?: Yes (2) Sepsis Qualifiers: Sepsis type: sepsis due to unspecified organism Sepsis acute organ dysfunction status: with acute organ dysfunction Severe sepsis acute organ dysfunction type: acute respiratory failure Acute respiratory failure type: with hypoxia Severe sepsis shock status: without septic shock Qualified Code(s): A41.9 - Sepsis, unspecified organism; R65.20 - Severe sepsis without septic shock; J96.01 - Acute respiratory failure with hypoxia Is this a current diagnosis for this admission?: Yes (3) History of dementia Is this a current diagnosis for this admission?: Yes (4) Pneumonia Qualifiers: Pneumonia type: aspiration pneumonia Aspiration pneumonia type: due to gastric secretions Laterality: left Lung location: lower lobe of lung Qualified Code(s): J69.0 - Pneumonitis due to inhalation of food and vomit Is this a current diagnosis for this admission?: Yes (5) Hyponatremia Is this a current diagnosis for this admission?: Yes (6) Leukopenia Qualifiers: Leukopenia type: other Qualified Code(s): D72.818 - Other decreased white blood cell count Is this a current diagnosis for this admission?: Yes - Plan Summary Summary: Given the patient's history of dementia, I suspect that he may have aspirated, possibly his own oral secretions. He did not have any evidence of pneumonia whenever he came into the hospital and he had been in the same room the whole time in the ER. He was requiring 2 L of oxygen per nasal cannula because his room air saturations were 88%. We will put him on Rocephin and azithromycin for the time being. If he does not respond we will consider changing him to Zosyn. We will give him some IV fluids. We will also give him nebulizer treatments. We will hold off on steroids for now. His wheezing improved whenever we set him up in the bed a little bit more and his upper airway was able to open up. - Time Time Spent with patient: 35 or more minutes Anticipated Discharge Disposition: Pending clinical course Anticipated Discharge Timeframe: Pending clinical course - Inpatient Certification Based on my medical assessment, after consideration of the patient's comorbidities, presenting symptoms, or acuity I expect that the services needed warrant INPATIENT care.: Yes Medical Necessity: Significant Comorbidiites Make Outpatient Treatment Too Risky, Need Close Monitoring Due to Risk of Patient Decompensation, Need For IV Fluids, Need For Continuous Telemetry Monitoring, Need for Nebulizer Therapy and Monitoring of Response, Need for IV Antibiotics, Risk of Complication if Not Cared For in Hospital
[2020-01-21] MEDS: HEPARIN SOD (PORCINE) 5,000 UNIT/ML 1 ML VIAL SUBCUT SCH ×2 (17:27→22:24)
[2020-01-21] MEDS: AZITHROMYCIN 500 MG in DEXTROSE 5%-WATER 250 ML IV SCH (18:39)
[2020-01-21] MEDS: SIMVASTATIN 10 MG TABLET PO SCH (22:24)
[2020-01-21] MEDS: DONEPEZIL HCL 5 MG TABLET PO SCH (22:24)
[2020-01-22] MEDS: IPRATROPIUM/ALBUTEROL 0.5-2.5 MG/3 ML AMPUL NEB PRN ×2 (03:19→21:06)
[2020-01-22] MEDS: HEPARIN SOD (PORCINE) 5,000 UNIT/ML 1 ML VIAL SUBCUT SCH ×3 (05:23→21:06)
[2020-01-22 06:43] LABS: HEMATOCRIT 36.2 % (37.9-51.0); MEAN CORPUSCULAR HEMOGLOBIN 35.8 pg (27.0-33.4); MEAN CORPUSCULAR HGB CONC 35.9 g/dL (32.0-36.0); MEAN CORPUSCULAR VOLUME 100 fl (80-97); PLATELET COUNT 159 10^3/uL (150-450); RED BLOOD COUNT 3.63 10^6/uL (4.35-5.55); RED CELL DISTRIBUTION WIDTH 13.1 % (11.5-14.0); WHITE BLOOD COUNT 2.6 10^3/uL (4.0-10.5)
[2020-01-22 07:10] LABS: ANION GAP 9 (5-19); BLOOD UREA NITROGEN 27 mg/dL (7-20); CALCIUM 8.3 mg/dL (8.4-10.2); CARBON DIOXIDE 24 mmol/L (22-30); CHLORIDE 100 mmol/L (98-107); GLUCOSE 104 mg/dL (75-110); POTASSIUM 3.9 mmol/L (3.6-5.0)
[2020-01-22] MEDS: BENAZEPRIL HCL 20 MG TABLET PO SCH (09:03)
[2020-01-22] MEDS: PANTOPRAZOLE SODIUM 40 MG TABLET.DR PO SCH (09:03)
[2020-01-22] MEDS: CYANOCOBALAMIN (VITAMIN B-12) 1,000 MCG TABLET PO SCH (09:03)
[2020-01-22] MEDS: ASPIRIN 81 MG TABLET, ENT COATED PO SCH (09:03)
[2020-01-22] MEDS: AMLODIPINE BESYLATE 5 MG TABLET PO SCH (09:03)
[2020-01-22] MEDS: ASCORBIC ACID 500 MG TABLET PO SCH (09:03)
[2020-01-22] MEDS: SERTRALINE HCL 50 MG TABLET PO SCH (09:03)
[2020-01-22] MEDS: ACETAMINOPHEN 325 MG TABLET PO PRN (09:04)
[2020-01-22] MEDS: CEFTRIAXONE 1 GM/D5W RTU 1 GM/50 ML RTUPB IV SCH (09:05)
[2020-01-22] MEDS: VITAMIN E (DL, ACETATE) 400 UNIT CAPSULE PO SCH (11:52)
[2020-01-22] MEDS: METHYLPREDNISOLONE INJ 40 MG/1 ML SDV IV SCH ×2 (11:53→21:52)
--- NOTE | 2020-01-22 12:28 | PDOC PROGRESS REPORT ---
Subjective Progress Note for:: 01/22/20 Subjective:: No adverse events overnight. No new complaints. Patient is still intermittently febrile. His breathing is about the same. He is oxygenating at about the same level. His creatinine is up a bit but overall decreased from when he came in, and may actually be his baseline. Reason For Visit: SEPSIS, LLL PNA Physical Exam Vital Signs: Temp Pulse Resp BP Pulse Ox 101.8 F H 92 24 H 121/60 91 L 01/22/20 08:47 01/22/20 08:47 01/22/20 08:47 01/22/20 08:47 01/22/20 08:47 Intake & Output 01/21/20 01/22/20 01/23/20 06:59 06:59 06:59 Intake Total 1000 1160 Balance 1000 1160 Weight 111.3 kg General appearance: PRESENT: disheveled, mild distress, morbidly obese Respiratory exam: PRESENT: rhonchi, symmetrical, tachypnea, unlabored, wheezes - Left lower lobe. ABSENT: accessory muscle use, chest wall tenderness, crackles, prolonged expiratory phas Cardiovascular exam: PRESENT: RRR, +S1, +S2 Pulses: PRESENT: normal carotid pulses Vascular exam: PRESENT: normal capillary refill GI/Abdominal exam: PRESENT: normal bowel sounds, soft. ABSENT: distended, guarding, rebound, tenderness Extremities exam: ABSENT: clubbing, pedal edema Musculoskeletal exam: PRESENT: normal inspection. ABSENT: deformity Neurological exam: PRESENT: awake, oriented to person. ABSENT: oriented to place, oriented to situation Results Laboratory Results: 01/22/20 06:05 01/22/20 06:05 01/22/20 01/22/20 06:05 06:05 WBC 2.6 L RBC 3.63 L Hgb 13.0 L Hct 36.2 L MCV 100 H MCH 35.8 H MCHC 35.9 RDW 13.1 Plt Count 159 Sodium 132.8 L Potassium 3.9 Chloride 100 Carbon Dioxide 24 Anion Gap 9 BUN 27 H Creatinine 1.28 H Est GFR ( Amer) > 60 Glucose 104 Calcium 8.3 L 01/20/20 01/20/20 21:02 21:02 Creatine Kinase 356 H Troponin I 0.026 NT-Pro-B Natriuret Pep 1580 H Impressions: Chest X-Ray 01/20/20 17:48 IMPRESSION: Patchy left basilar airspace opacities. Mild interstitial prominence bilaterally. Assessment and Plan - Diagnosis (1) Acute hypoxemic respiratory failure Is this a current diagnosis for this admission?: Yes (2) Sepsis Qualifiers: Sepsis type: sepsis due to unspecified organism Sepsis acute organ dysfunction status: with acute organ dysfunction Severe sepsis acute organ dysfunction type: acute respiratory failure Acute respiratory failure type: with hypoxia Severe sepsis shock status: without septic shock Qualified Code(s): A41.9 - Sepsis, unspecified organism; R65.20 - Severe sepsis without septic shock; J96.01 - Acute respiratory failure with hypoxia Is this a current diagnosis for this admission?: Yes (3) History of dementia Is this a current diagnosis for this admission?: Yes (4) Pneumonia Qualifiers: Pneumonia type: aspiration pneumonia Aspiration pneumonia type: due to gastric secretions Laterality: left Lung location: lower lobe of lung Qualified Code(s): J69.0 - Pneumonitis due to inhalation of food and vomit Is this a current diagnosis for this admission?: Yes (5) Hyponatremia Is this a current diagnosis for this admission?: Yes (6) Leukopenia Qualifiers: Leukopenia type: other Qualified Code(s): D72.818 - Other decreased white blood cell count Is this a current diagnosis for this admission?: Yes - Plan Summary Summary: Continue with his current antibiotics. His coronavirus test was done while he was in the ER and that is pending. He does not appear to have deteriorated clin ically overnight. Added an influenza screen. He still wheezing a little bit so I added some steroids today. - Time Time Spent with patient: 15-24 minutes Anticipated Discharge Disposition: Assisted Care Facility Anticipated Discharge Timeframe: Pending clinical course
[2020-01-22 17:10] LABS: A TYPE INFLUENZA AG NEGATIVE (NEGATIVE); B INFLUENZA AG NEGATIVE (NEGATIVE)
[2020-01-22] MEDS: AZITHROMYCIN 500 MG in DEXTROSE 5%-WATER 250 ML IV SCH (18:34)
[2020-01-22] MEDS: DONEPEZIL HCL 5 MG TABLET PO SCH (21:52)
[2020-01-22] MEDS: SIMVASTATIN 10 MG TABLET PO SCH (21:53)
[2020-01-23] MEDS: HEPARIN SOD (PORCINE) 5,000 UNIT/ML 1 ML VIAL SUBCUT SCH ×3 (05:38→21:12)
[2020-01-23] MEDS ORDERED: NORMAL SALINE 250 ML IV PRN (08:24)
[2020-01-23 09:04] LABS: HEMATOCRIT 38.3 % (37.9-51.0); HEMOGLOBIN 13.6 g/dL (13.5-17.0); MEAN CORPUSCULAR HEMOGLOBIN 34.6 pg (27.0-33.4); MEAN CORPUSCULAR HGB CONC 35.5 g/dL (32.0-36.0); MEAN CORPUSCULAR VOLUME 97 fl (80-97); PLATELET COUNT 184 10^3/uL (150-450); RED BLOOD COUNT 3.93 10^6/uL (4.35-5.55); WHITE BLOOD COUNT 3.1 10^3/uL (4.0-10.5)
[2020-01-23 09:22] LABS: CARBON DIOXIDE 20 mmol/L (22-30)
[2020-01-23 09:39] LABS: ANION GAP 12 (5-19); BLOOD UREA NITROGEN 34 mg/dL (7-20); CALCIUM 8.6 mg/dL (8.4-10.2); CHLORIDE 101 mmol/L (98-107); GLUCOSE 153 mg/dL (75-110); POTASSIUM 3.7 mmol/L (3.6-5.0)
[2020-01-23] MEDS: ASPIRIN 81 MG TABLET, ENT COATED PO SCH (10:54)
[2020-01-23] MEDS: PANTOPRAZOLE SODIUM 40 MG TABLET.DR PO SCH (10:55)
[2020-01-23] MEDS: BENAZEPRIL HCL 20 MG TABLET PO SCH (10:55)
[2020-01-23] MEDS: AMLODIPINE BESYLATE 5 MG TABLET PO SCH (10:55)
[2020-01-23] MEDS: DEXAMETHASONE SOD PHOS INJ 10 MG/1 ML VIAL IV SCH (10:55)
[2020-01-23] MEDS: CEFTRIAXONE 1 GM/D5W RTU 1 GM/50 ML RTUPB IV SCH (10:55)
[2020-01-23] MEDS: CYANOCOBALAMIN (VITAMIN B-12) 1,000 MCG TABLET PO SCH (10:55)
[2020-01-23] MEDS: SERTRALINE HCL 50 MG TABLET PO SCH (10:55)
[2020-01-23] MEDS: ASCORBIC ACID 500 MG TABLET PO SCH (10:57)
[2020-01-23] MEDS: VITAMIN E (DL, ACETATE) 400 UNIT CAPSULE PO SCH (10:57)
[2020-01-23] MEDS ORDERED: REMDESIVIR (EUA) 200 MG in NORMAL SALINE 250 ML IV ONE (11:00)
--- NOTE | 2020-01-23 13:19 | PDOC PROGRESS REPORT ---
Subjective Progress Note for:: 01/23/20 Subjective:: No adverse events at night. No new complaints. He is up to 4 L on the nasal cannula. Vital signs otherwise stable. Has been afebrile. Coronavirus test has come back positive. We change his steroids to Decadron and started antiviral treatment. He is eating and drinking without difficulty. Reason For Visit: SEPSIS, LLL PNA Physical Exam Vital Signs: Temp Pulse Resp BP Pulse Ox 97.7 F 87 22 H 106/82 89 L 01/23/20 12:11 01/23/20 12:11 01/23/20 12:11 01/23/20 12:11 01/23/20 12:11 Intake & Output 01/22/20 01/23/20 01/24/20 06:59 06:59 06:59 Intake Total 1160 870 Output Total 375 Balance 1160 495 Weight 111.3 kg 112.5 kg General appearance: PRESENT: disheveled, no apparent distress, morbidly obese Respiratory exam: PRESENT: rhonchi, symmetrical, tachypnea, unlabored. ABSENT: accessory muscle use, chest wall tenderness, crackles, prolonged expiratory phase, wheezes Cardiovascular exam: PRESENT: RRR, +S1, +S2 Pulses: PRESENT: normal carotid pulses Vascular exam: PRESENT: normal capillary refill GI/Abdominal exam: PRESENT: normal bowel sounds, soft. ABSENT: distended, guarding, rebound, tenderness Extremities exam: ABSENT: clubbing, pedal edema Musculoskeletal exam: PRESENT: normal inspection. ABSENT: deformity Neurological exam: PRESENT: awake, oriented to person. ABSENT: oriented to place, oriented to situation Results Laboratory Results: 01/23/20 07:57 01/23/20 07:57 01/23/20 01/23/20 01/23/20 07:57 07:57 09:05 WBC 3.1 L RBC 3.93 L Hgb 13.6 Hct 38.3 MCV 97 MCH 34.6 H MCHC 35.5 RDW 13.0 Plt Count 184 Sodium 133.3 L Potassium 3.7 Chloride 101 Carbon Dioxide 20 L Anion Gap 12 BUN 34 H Creatinine 1.29 H Est GFR ( Amer) > 60 Glucose 153 H Calcium 8.6 Blood Type O POSITIVE 01/20/20 01/20/20 21:02 21:02 Creatine Kinase 356 H Troponin I 0.026 NT-Pro-B Natriuret Pep 1580 H Impressions: Chest X-Ray 01/20/20 17:48 IMPRESSION: Patchy left basilar airspace opacities. Mild interstitial prominence bilaterally. Assessment and Plan - Diagnosis (1) Acute hypoxemic respiratory failure Is this a current diagnosis for this admission?: Yes (2) Sepsis Qualifiers: Sepsis type: sepsis due to unspecified organism Sepsis acute organ dysfunction status: with acute organ dysfunction Severe sepsis acute organ dysfunction type: acute respiratory failure Acute respiratory failure type: with hypoxia Severe sepsis shock status: without septic shock Qualified Code(s): A41.9 - Sepsis, unspecified organism; R65.20 - Severe sepsis without septic shock; J96.01 - Acute respiratory failure with hypoxia Is this a current diagnosis for this admission?: Yes (3) History of dementia Is this a current diagnosis for this admission?: Yes (4) Pneumonia Qualifiers: Pneumonia type: aspiration pneumonia Aspiration pneumonia type: due to gastric secretions Laterality: left Lung location: lower lobe of lung Qualified Code(s): J69.0 - Pneumonitis due to inhalation of food and vomit Is this a current diagnosis for this admission?: Yes (5) Hyponatremia Is this a current diagnosis for this admission?: Yes (6) Leukopenia Qualifiers: Leukopenia type: other Qualified Code(s): D72.818 - Other decreased white blood cell count Is this a current diagnosis for this admission?: Yes - Plan Summary Summary: Continue with his current antibiotics. His coronavirus test was done while he was in the ER and that has turned out to be positive. We have switched his steroids over to Decadron. Have added remdesivir and convalescent plasma. Speech therapy tested him and said he was okay for thin liquids. - Time Time Spent with patient: 15-24 minutes Anticipated Discharge Disposition: Group Home Facility Anticipated Discharge Timeframe: Pending clinical course
[2020-01-23 13:29] LABS: PATH REVIEW PATHOLOGIST REVIEWED
[2020-01-23] MEDS ORDERED: ONDANSETRON HCL INJ/PF 4 MG/2 ML SDV IV PRN (15:00)
[2020-01-23] MEDS: AZITHROMYCIN 500 MG in DEXTROSE 5%-WATER 250 ML IV SCH (17:07)
[2020-01-23] MEDS: SIMVASTATIN 10 MG TABLET PO SCH (21:12)
[2020-01-23] MEDS: DONEPEZIL HCL 5 MG TABLET PO SCH (21:13)
[2020-01-24 05:31] LABS: ANION GAP 10 (5-19); BLOOD UREA NITROGEN 42 mg/dL (7-20); CALCIUM 8.9 mg/dL (8.4-10.2); CARBON DIOXIDE 25 mmol/L (22-30); CHLORIDE 101 mmol/L (98-107); GLUCOSE 125 mg/dL (75-110); POTASSIUM 3.8 mmol/L (3.6-5.0)
[2020-01-24 05:39] LABS: HEMATOCRIT 42.5 % (37.9-51.0); HEMOGLOBIN 15.3 g/dL (13.5-17.0); MEAN CORPUSCULAR HGB CONC 35.9 g/dL (32.0-36.0); MEAN CORPUSCULAR VOLUME 98 fl (80-97); PLATELET COUNT 191 10^3/uL (150-450); RED BLOOD COUNT 4.36 10^6/uL (4.35-5.55); RED CELL DISTRIBUTION WIDTH 13.1 % (11.5-14.0)
[2020-01-24] MEDS: HEPARIN SOD (PORCINE) 5,000 UNIT/ML 1 ML VIAL SUBCUT SCH ×3 (05:58→22:26)
[2020-01-24] MEDS: SERTRALINE HCL 50 MG TABLET PO SCH (09:38)
[2020-01-24] MEDS: ASCORBIC ACID 500 MG TABLET PO SCH (09:38)
[2020-01-24] MEDS: AMLODIPINE BESYLATE 5 MG TABLET PO SCH (09:38)
[2020-01-24] MEDS: PANTOPRAZOLE SODIUM 40 MG TABLET.DR PO SCH (09:38)
[2020-01-24] MEDS: DEXAMETHASONE SOD PHOS INJ 10 MG/1 ML VIAL IV SCH (09:39)
[2020-01-24] MEDS: BENAZEPRIL HCL 20 MG TABLET PO SCH (09:39)
[2020-01-24] MEDS: ASPIRIN 81 MG TABLET, ENT COATED PO SCH (09:39)
[2020-01-24] MEDS: CEFTRIAXONE 1 GM/D5W RTU 1 GM/50 ML RTUPB IV SCH (09:39)
[2020-01-24] MEDS: CYANOCOBALAMIN (VITAMIN B-12) 1,000 MCG TABLET PO SCH (09:39)
[2020-01-24] MEDS: VITAMIN E (DL, ACETATE) 400 UNIT CAPSULE PO SCH (09:41)
[2020-01-24] MEDS: REMDESIVIR (EUA) 100 MG in NORMAL SALINE 250 ML IV SCH (09:47)
--- NOTE | 2020-01-24 17:14 | PDOC PROGRESS REPORT ---
Subjective Progress Note for:: 01/24/20 Subjective:: The patient is an 79-year-old male with a past medical history of dementia who was admitted 01/21/2020 for acute hypoxic respiratory failure and sepsis secondary to pneumonia; subsequently found to have COVID-19. Patient was seen on afternoon rounds. He is resting in bed, comfortably, on Oxymizer at 10 L/min. It appears that over the last 48 hours the patient has had increased oxygen demand with an SPO2 consistently 87-91. No associated tachypnea or fever. T-max 101.8/72 hours. Afebrile x48 Patient was sleeping but woke easily when I said his name. He is oriented to self. He is pleasantly confused; seems to think he knows me. He denies all symptoms currently; specifically fever, chest pain, dyspnea, abdominal pain, nausea and vomiting. He has no questions or concerns at this time. No concerns per nursing. Reason For Visit: SEPSIS, LLL PNA Physical Exam Vital Signs: Temp Pulse Resp BP Pulse Ox 97.5 F 93 18 116/82 91 L 01/24/20 12:21 01/24/20 14:00 01/24/20 12:21 01/24/20 12:21 01/24/20 12:21 Intake & Output 01/23/20 01/24/20 01/25/20 06:59 06:59 06:59 Intake Total 870 1440 320 Output Total 375 725 180 Balance 495 715 140 Weight 112.5 kg 111.3 kg General appearance: PRESENT: no acute distress, cooperative, well-developed, well-nourished - oveerweight Head exam: PRESENT: atraumatic, normocephalic Eye exam: PRESENT: conjunctiva pink, EOMI, PERRLA. ABSENT: scleral icterus Mouth exam: PRESENT: moist, tongue midline Respiratory exam: PRESENT: clear to auscultation mariana, symmetrical, unlabored, other - Omental oxygen by nasal cannula. ABSENT: rales, rhonchi, wheezes Cardiovascular exam: PRESENT: RRR. ABSENT: diastolic murmur, rubs, systolic murmur Vascular exam: PRESENT: normal capillary refill GI/Abdominal exam: PRESENT: normal bowel sounds, soft. ABSENT: distended, guarding, mass, organolmegaly, rebound, tenderness Rectal exam: PRESENT: deferred Extremities exam: PRESENT: full ROM. ABSENT: calf tenderness, clubbing, pedal edema Neurological exam: PRESENT: alert, awake, oriented to person, CN II-XII grossly intact, other - Pleasantly confused. ABSENT: motor sensory deficit Psychiatric exam: PRESENT: appropriate affect, normal mood. ABSENT: homicidal ideation, suicidal ideation Skin exam: PRESENT: dry, intact, warm. ABSENT: cyanosis, rash Results Laboratory Results: 01/24/20 05:03 01/24/20 05:03 01/24/20 01/24/20 05:03 05:03 WBC 6.0 RBC 4.36 Hgb 15.3 Hct 42.5 MCV 98 H MCH 35.0 H MCHC 35.9 RDW 13.1 Plt Count 191 Sodium 136.2 L Potassium 3.8 Chloride 101 Carbon Dioxide 25 Anion Gap 10 BUN 42 H Creatinine 1.09 Est GFR ( Amer) > 60 Glucose 125 H Calcium 8.9 01/20/20 21:02 Blood Blood Culture (PCR) - Final 01/20/20 21:02 Blood Blood Culture - Final Staphylococcus Hominis 01/20/20 01/20/20 21:02 21:02 Creatine Kinase 356 H Troponin I 0.026 NT-Pro-B Natriuret Pep 1580 H Impressions: Chest X-Ray 01/20/20 17:48 IMPRESSION: Patchy left basilar airspace opacities. Mild interstitial prominence bilaterally. Assessment and Plan - Diagnosis (1) COVID-19 Is this a current diagnosis for this admission?: Yes Plan: Covid positive We will check d-dimer, ferritin, CRP, LDH with a.m. lab work. Provide supplemental oxygen as needed maintain saturations greater than 89%. As needed nebulizer treatments. Continue IV azithromycin Continue remdesivir Provide 1 unit convalescent serum Continue daily dexamethasone Zinc, vitamin D, vitamin C, and melatonin supplementation. Encourage pulmonary toilet. Isolation precautions. (2) Pneumonia Qualifiers: Pneumonia type: aspiration pneumonia Aspiration pneumonia type: due to gastric secretions Laterality: left Lung location: lower lobe of lung Qualified Code(s): J69.0 - Pneumonitis due to inhalation of food and vomit Is this a current diagnosis for this admission?: Yes Plan: Initial concern for aspiration pneumonia; subsequently found to have COVID-19. Blood cultures positive for staph hominis (1 set); determined to be a contaminant this [place]. Otherwise negative at 72 hrs. Sputum cultures not obtained. Continue IV Azithromycin and Ceftriaxone. Will plan to discontinue Ceftriaxone tomorrow if patient remains afebrile. Remaining management as above. (3) Acute hypoxemic respiratory failure Is this a current diagnosis for this admission?: Yes Plan: Secondary #1. Evaluation management as above (4) History of dementia Is this a current diagnosis for this admission?: Yes Plan: Supportive care. Discharge planning consulted. (5) Sepsis Qualifiers: Sepsis type: sepsis due to unspecified organism Sepsis acute organ dysfunction status: with acute organ dysfunction Severe sepsis acute organ dysfunction type: acute respiratory failure Acute respiratory failure type: with hypoxia Severe sepsis shock status: without septic shock Qualified Code(s): A41.9 - Sepsis, unspecified organism; R65.20 - Severe sepsis without septic shock; J96.01 - Acute respiratory failure with hypoxia Is this a current diagnosis for this admission?: Yes Plan: Resolved. Secondary to #1-2 (6) Hyponatremia Is this a current diagnosis for this admission?: Yes Plan: Improved; no longer clinically significant. (7) Leukopenia Qualifiers: Leukopenia type: other Qualified Code(s): D72.818 - Other decreased white blood cell count Is this a current diagnosis for this admission?: Yes Plan: Resolved. - Time Time Spent with patient: 25-34 minutes Medications reviewed and adjusted accordingly: Yes Anticipated Discharge Disposition: Nursing Home Facility Anticipated Discharge Timeframe: undetermined
[2020-01-24] MEDS: AZITHROMYCIN 500 MG in DEXTROSE 5%-WATER 250 ML IV SCH ×2 (18:48→22:27)
[2020-01-24] MEDS: DONEPEZIL HCL 5 MG TABLET PO SCH (22:26)
[2020-01-24] MEDS: SIMVASTATIN 10 MG TABLET PO SCH (22:26)
[2020-01-25 05:33] LABS: HEMATOCRIT 41.1 % (37.9-51.0); HEMOGLOBIN 14.9 g/dL (13.5-17.0); MEAN CORPUSCULAR HGB CONC 36.3 g/dL (32.0-36.0); MEAN CORPUSCULAR VOLUME 97 fl (80-97); PLATELET COUNT 290 10^3/uL (150-450); RED BLOOD COUNT 4.25 10^6/uL (4.35-5.55); RED CELL DISTRIBUTION WIDTH 12.9 % (11.5-14.0); WHITE BLOOD COUNT 7.3 10^3/uL (4.0-10.5)
[2020-01-25] MEDS: HEPARIN SOD (PORCINE) 5,000 UNIT/ML 1 ML VIAL SUBCUT SCH (05:46)
[2020-01-25 06:10] LABS: ANION GAP 13 (5-19); BLOOD UREA NITROGEN 48 mg/dL (7-20); C-REACTIVE PROTEIN 63.4 mg/L (<10.0); CALCIUM 9.3 mg/dL (8.4-10.2); CARBON DIOXIDE 23 mmol/L (22-30); CHLORIDE 104 mmol/L (98-107); GLUCOSE 143 mg/dL (75-110); POTASSIUM 4.2 mmol/L (3.6-5.0)
[2020-01-25 09:55] LABS: ARTERIAL BLOOD BASE EXCESS 1.4 mmol/L; ARTERIAL BLOOD H2CO3 0.99 mmol/L (1.05-1.35); ARTERIAL BLOOD HCO3 24.2 mmol/L (20-24); ARTERIAL BLOOD O2 SATURATION 88.6 % (94-98); ARTERIAL BLOOD PH 7.48 (7.35-7.45); ARTERIAL BLOOD PO2 50.2 mmHg (80-100); ARTERIAL BLOOD TOTAL CO2 25.2 mmol/L (23-27)
[2020-01-25 10:02] LABS: ARTERIAL BLOOD FIO2 11L
[2020-01-25] MEDS: ENOXAPARIN SODIUM INJ 120 MG/0.8 ML DISP.SYRIN SUBCUT SCH ×2 (10:12→22:45)
[2020-01-25] MEDS: ASPIRIN 81 MG TABLET, ENT COATED PO SCH (10:13)
[2020-01-25] MEDS: PANTOPRAZOLE SODIUM 40 MG TABLET.DR PO SCH (10:13)
[2020-01-25] MEDS: AMLODIPINE BESYLATE 5 MG TABLET PO SCH (10:13)
[2020-01-25] MEDS: CYANOCOBALAMIN (VITAMIN B-12) 1,000 MCG TABLET PO SCH (10:13)
[2020-01-25] MEDS: ASCORBIC ACID 500 MG TABLET PO SCH (10:13)
[2020-01-25] MEDS: SERTRALINE HCL 50 MG TABLET PO SCH (10:13)
[2020-01-25] MEDS: CEFTRIAXONE 1 GM/D5W RTU 1 GM/50 ML RTUPB IV SCH (10:13)
[2020-01-25] MEDS: VITAMIN E (DL, ACETATE) 400 UNIT CAPSULE PO SCH (10:13)
[2020-01-25] MEDS: BENAZEPRIL HCL 20 MG TABLET PO SCH (10:14)
[2020-01-25] MEDS: DEXAMETHASONE SOD PHOS INJ 10 MG/1 ML VIAL IV SCH (10:15)
[2020-01-25] MEDS: REMDESIVIR (EUA) 100 MG in NORMAL SALINE 250 ML IV SCH (10:16)
--- NOTE | 2020-01-25 14:42 | ADVANCED CARE ---
- Diagnosis (1) COVID-19 Diagnosis Current: Yes (2) Pneumonia Diagnosis Current: Yes (3) Acute hypoxemic respiratory failure Diagnosis Current: Yes (4) History of dementia Diagnosis Current: Yes (5) Sepsis Diagnosis Current: Yes (6) Hyponatremia Diagnosis Current: Yes (7) Leukopenia Diagnosis Current: Yes Attendance: The patient's , Olga Peterson, by phone. Resuscitation Status: Full Code Discussion: Briefly discussed the patient's past medical history and social hold in the emergency department due to dementia. Discussed, in detail, patient's current diagnosis of COVID-19 and worsening respiratory status necessitating increased supplemetal oxygen; transitioning to HFNC today. Reviewed care plan including convalescent plasma, acyclovir, remdesivir, dexamethasone, full dose Lovenox, etc. Discussed end-of-life goals. Patient spouse used the words DNR, however, it quickly became apparent that she was actually describing a living will. Mrs. Peterson read portions of their living will to me. The patient has requested that IV fluids and tube feeds to be continued at end-of-life. He is also requested that advanced life care measures be withdrawn in the event that he is determined to be in a vegetative state. He does not specify that he would not want heroic measures in the event of cardiac/respiratory failure. We discussed FULL CODE vs. DNR in detail. Patient's spouse confirms that should her 's respiratory condition worsen to the extent that he required intubation, she would desire us to intubate him. She acknowledged that with advanced age, it can be very difficult to successfully extubate. She states, "I want you to do everything you can to give him a chance." Care Planning Goals: FULL Code ICU Upgrade if indicated. Advanced airway and oxygen supplementation as indicated. IVF and Tube Feeds as indicated. Time Spent: 30 min
[2020-01-25] MEDS: AZITHROMYCIN 500 MG in DEXTROSE 5%-WATER 250 ML IV SCH (17:25)
[2020-01-25] MEDS ORDERED: ZIPRASIDONE MESYLATE INJ/PF 20 MG SDV IM ONE (17:30)
--- NOTE | 2020-01-25 18:56 | PDOC PROGRESS REPORT ---
Subjective Progress Note for:: 01/25/20 Subjective:: The patient is an 79-year-old male with a past medical history of dementia who was admitted 01/21/2020 for acute hypoxic respiratory failure and sepsis secondary to pneumonia; subsequently found to have COVID-19. Patient was seen on afternoon rounds. He is resting in bed, comfortably, on HFNC. Unfortunately, patient has had increased confusion and agitation today. Patient has been pulling at equipment, attempting to get out of bed, and speaking to people who were not in the room. Nursing reports he is required near constant attention and redirection. Afebrile x72 hours Patient was sleeping but woke easily when I said his name. He is oriented to self only. He asks me to help him pick something up off the floor; states that he has spilled his lunch, however, the floor is noted to be clean. He mumbles quite a bit in response to my questions and is very difficult to assess his overall mentation. ROS is therefore limited. Separate conversation had with patient's today; see ACP note. Reason For Visit: SEPSIS, LLL PNA Physical Exam Vital Signs: Temp Pulse Resp BP Pulse Ox 98.2 F 86 21 H 135/87 H 93 01/25/20 15:51 01/25/20 15:51 01/25/20 15:51 01/25/20 15:51 01/25/20 15:51 Intake & Output 01/24/20 01/25/20 01/26/20 06:59 06:59 06:59 Intake Total 1440 1479 448 Output Total 725 780 400 Balance 715 699 48 Weight 111.3 kg 115 kg 115 kg General appearance: PRESENT: hard of hearing, mild distress, well-developed, well-nourished - Overweight Head exam: PRESENT: atraumatic, normocephalic Eye exam: PRESENT: conjunctiva pink, EOMI, PERRLA. ABSENT: scleral icterus Mouth exam: PRESENT: moist, tongue midline Respiratory exam: PRESENT: clear to auscultation mariana, decreased breath sounds - Throughout the colon shallow breathing, symmetrical, tachypnea, other - Supplemental oxygen by HFNC. ABSENT: rales, rhonchi, wheezes Cardiovascular exam: PRESENT: RRR, +S1, +S2. ABSENT: diastolic murmur, rubs, systolic murmur Vascular exam: PRESENT: normal capillary refill Extremities exam: PRESENT: full ROM. ABSENT: calf tenderness, clubbing, pedal edema Neurological exam: PRESENT: awake, oriented to person, CN II-XII grossly intact, other - Increased confusion. ABSENT: motor sensory deficit Skin exam: PRESENT: dry, intact, warm. ABSENT: cyanosis, rash Results Laboratory Results: 01/25/20 04:42 01/25/20 04:42 01/25/20 01/25/20 01/25/20 04:42 04:42 04:42 WBC 7.3 RBC 4.25 L Hgb 14.9 Hct 41.1 MCV 97 MCH 35.0 H MCHC 36.3 H RDW 12.9 Plt Count 290 Carbonic Acid HCO3/H2CO3 Ratio ABG pH ABG pCO2 ABG pO2 ABG HCO3 ABG O2 Saturation ABG Base Excess FiO2 Sodium 140.4 Potassium 4.2 Chloride 104 Carbon Dioxide 23 Anion Gap 13 BUN 48 H Creatinine 1.10 Est GFR ( Amer) > 60 Glucose 143 H Calcium 9.3 Ferritin 1240.00 H C-Reactive Protein 63.4 H 01/25/20 09:42 WBC RBC Hgb Hct MCV MCH MCHC RDW Plt Count Carbonic Acid 0.99 L HCO3/H2CO3 Ratio 24:1 ABG pH 7.48 H ABG pCO2 33.0 L ABG pO2 50.2 L ABG HCO3 24.2 H ABG O2 Saturation 88.6 L ABG Base Excess 1.4 FiO2 11L Sodium Potassium Chloride Carbon Dioxide Anion Gap BUN Creatinine Est GFR ( Amer) Glucose Calcium Ferritin C-Reactive Protein 01/20/20 21:02 Blood Blood Culture (PCR) - Final 01/20/20 21:02 Blood Blood Culture - Final Staphylococcus Hominis 01/20/20 01/20/20 21:02 21:02 Creatine Kinase 356 H Troponin I 0.026 NT-Pro-B Natriuret Pep 1580 H Impressions: Chest X-Ray 01/20/20 17:48 IMPRESSION: Patchy left basilar airspace opacities. Mild interstitial prominence bilaterally. Assessment and Plan - Diagnosis (1) COVID-19 Is this a current diagnosis for this admission?: Yes Plan: Covid positive D-dimer, LDH, CRP, and ferritin are all elevated. ABG revealed respiratory alkalosis with hypoxia. Provide supplemental oxygen as needed maintain saturations greater than 89%. We will trial HFNC with follow-up ABG. Start full dose Lovenox. As needed nebulizer treatments. Continue IV azithromycin Continue remdesivir Provided 1 unit convalescent serum Continue daily dexamethasone Zinc, vitamin D, vitamin C, and melatonin supplementation. Encourage pulmonary toilet. Isolation precautions. (2) Pneumonia Qualifiers: Pneumonia type: aspiration pneumonia Aspiration pneumonia type: due to gastric secretions Laterality: left Lung location: lower lobe of lung Qualified Code(s): J69.0 - Pneumonitis due to inhalation of food and vomit Is this a current diagnosis for this admission?: Yes Plan: Initial concern for aspiration pneumonia; subsequently found to have COVID-19. Blood cultures positive for staph hominis (1 set); determined to be a contaminant this Crystal. Otherwise negative at 72 hrs. Sputum cultures not obtained. Continue IV Azithromycin; last dose tomorrow. IV Rocephin is discontinued; received 4 doses. Remaining management as above. (3) Acute hypoxemic respiratory failure Is this a current diagnosis for this admission?: Yes Plan: Secondary #1. Evaluation management as above (4) Acute metabolic encephalopathy Is this a current diagnosis for this admission?: Yes Plan: Multifactorial secondary to Covid pneumonia and hypoxia in the setting of dementia. Supportive care. (5) History of dementia Is this a current diagnosis for this admission?: Yes Plan: Supportive care. Discharge planning consulted. (6) Sepsis Qualifiers: Sepsis type: sepsis due to unspecified organism Sepsis acute organ dysfunction status: with acute organ dysfunction Severe sepsis acute organ dysfunction type: acute respiratory failure Acute respiratory failure type: with hypoxia Severe sepsis shock status: without septic shock Qualified Code(s): A41.9 - Sepsis, unspecified organism; R65.20 - Severe sepsis without septic shock; J96.01 - Acute respiratory failure with hypoxia Is this a current diagnosis for this admission?: Yes Plan: Resolved. Secondary to #1-2 (7) Hyponatremia Is this a current diagnosis for this admission?: Yes Plan: Resolved (8) Leukopenia Qualifiers: Leukopenia type: other Qualified Code(s): D72.818 - Other decreased white blood cell count Is this a current diagnosis for this admission?: Yes Plan: Resolved. - Time Time Spent with patient: 35 or more minutes Medications reviewed and adjusted accordingly: Yes Anticipated Discharge Disposition: Undetermined Anticipated Discharge Timeframe: - Undetermined
[2020-01-25] MEDS: SIMVASTATIN 10 MG TABLET PO SCH (22:45)
[2020-01-25] MEDS: DONEPEZIL HCL 5 MG TABLET PO SCH (22:45)
[2020-01-25] MEDS ORDERED: LORAZEPAM INJ 2 MG/1 ML VIAL IV ONE (23:30)
[2020-01-26 04:45] LABS: ARTERIAL BLOOD BASE EXCESS -0.5 mmol/L; ARTERIAL BLOOD FIO2 90%; ARTERIAL BLOOD H2CO3 1.14 mmol/L (1.05-1.35); ARTERIAL BLOOD HCO3 23.8 mmol/L (20-24); ARTERIAL BLOOD O2 SATURATION 91.3 % (94-98); ARTERIAL BLOOD PH 7.42 (7.35-7.45); ARTERIAL BLOOD PO2 59.5 mmHg (80-100)
[2020-01-26] MEDS: IPRATROPIUM/ALBUTEROL 0.5-2.5 MG/3 ML AMPUL NEB PRN (07:53)
[2020-01-26 10:40] LABS: ARTERIAL BLOOD BASE EXCESS 2.1 mmol/L; ARTERIAL BLOOD H2CO3 1.07 mmol/L (1.05-1.35); ARTERIAL BLOOD HCO3 25.4 mmol/L (20-24); ARTERIAL BLOOD O2 SATURATION 87.3 % (94-98); ARTERIAL BLOOD PCO2 35.6 mmHg (35-45); ARTERIAL BLOOD PH 7.47 (7.35-7.45); ARTERIAL BLOOD TOTAL CO2 26.5 mmol/L (23-27)
[2020-01-26] MEDS: VITAMIN E (DL, ACETATE) 400 UNIT CAPSULE PO SCH (11:06)
[2020-01-26] MEDS: SERTRALINE HCL 50 MG TABLET PO SCH (11:07)
[2020-01-26] MEDS: PANTOPRAZOLE SODIUM 40 MG TABLET.DR PO SCH (11:07)
[2020-01-26] MEDS: AMLODIPINE BESYLATE 5 MG TABLET PO SCH (11:07)
[2020-01-26] MEDS: ASPIRIN 81 MG TABLET, ENT COATED PO SCH (11:07)
[2020-01-26] MEDS: BENAZEPRIL HCL 20 MG TABLET PO SCH (11:07)
[2020-01-26] MEDS: ASCORBIC ACID 500 MG TABLET PO SCH (11:07)
[2020-01-26] MEDS: CYANOCOBALAMIN (VITAMIN B-12) 1,000 MCG TABLET PO SCH (11:07)
[2020-01-26] MEDS: DEXAMETHASONE SOD PHOS INJ 10 MG/1 ML VIAL IV SCH (11:08)
[2020-01-26] MEDS: ENOXAPARIN SODIUM INJ 120 MG/0.8 ML DISP.SYRIN SUBCUT SCH ×2 (11:08→22:00)
[2020-01-26] MEDS: CEFTRIAXONE 1 GM/D5W RTU 1 GM/50 ML RTUPB IV SCH (11:09)
[2020-01-26] MEDS: REMDESIVIR (EUA) 100 MG in NORMAL SALINE 250 ML IV SCH (11:10)
[2020-01-26] MEDS ORDERED: HALOPERIDOL LACTATE INJ 5 MG/1 ML VIAL IV ONE (12:30)
[2020-01-26] MEDS ORDERED: HALOPERIDOL LACTATE INJ 5 MG/1 ML VIAL ONE (12:40)
--- NOTE | 2020-01-26 13:37 | PDOC PROGRESS REPORT ---
Subjective Progress Note for:: 01/26/20 Subjective:: The patient is an 79-year-old male with a past medical history of dementia who was admitted 01/21/2020 for acute hypoxic respiratory failure and sepsis secondary to pneumonia; subsequently found to have COVID-19. Patient was seen on morning rounds. He is resting in bed on HFNC; FiO2 100%, 60 lpm. Unfortunately, patient continues to have increased confusion and agitation; noted to be pulling at his lines, picking at his sheets, and speaking to people not present in the room. He is mumbling and does not respond directly to questions or follow directions today. ROS is therefore limited. Afebrile >72 hours Discussed plan of care with RT and nursing. Reason For Visit: SEPSIS, LLL PNA Physical Exam Vital Signs: Temp Pulse Resp BP Pulse Ox 97.5 F 119 H 19 152/82 H 93 01/26/20 11:23 01/26/20 11:23 01/26/20 11:23 01/26/20 11:23 01/26/20 11:23 Intake & Output 01/25/20 01/26/20 01/27/20 06:59 06:59 06:59 Intake Total 1479 698 50 Output Total 780 900 200 Balance 699 -202 -150 Weight 115 kg 119.6 kg General appearance: PRESENT: hard of hearing, obese, well-developed, well- nourished, other - moderate distress; acutely ill appearing and encephalopathic Head exam: PRESENT: atraumatic, normocephalic Eye exam: PRESENT: conjunctiva pink, EOMI, PERRLA. ABSENT: scleral icterus Mouth exam: PRESENT: moist, tongue midline Teeth exam: PRESENT: edentulous Respiratory exam: PRESENT: accessory muscle use, symmetrical, tachypnea, wheezes, other - max HFNC. ABSENT: rales, rhonchi, unlabored Cardiovascular exam: PRESENT: RRR, +S1, +S2. ABSENT: diastolic murmur, rubs, systolic murmur Vascular exam: PRESENT: normal capillary refill GI/Abdominal exam: PRESENT: normal bowel sounds, soft. ABSENT: distended, guarding, mass, organolmegaly, rebound, tenderness Rectal exam: PRESENT: deferred Gentrourinary exam: PRESENT: indwelling catheter Extremities exam: PRESENT: full ROM. ABSENT: calf tenderness, clubbing, pedal edema Neurological exam: PRESENT: alert, awake, CN II-XII grossly intact, other - disorientated. ABSENT: oriented to person, oriented to place, oriented to time, oriented to situation, motor sensory deficit Skin exam: PRESENT: dry, intact, warm. ABSENT: cyanosis, rash Results Laboratory Results: 01/25/20 04:42 01/25/20 04:42 01/26/20 01/26/20 04:15 10:27 Carbonic Acid 1.14 1.07 HCO3/H2CO3 Ratio 20:1 23:1 ABG pH 7.42 7.47 H ABG pCO2 38.0 35.6 ABG pO2 59.5 L 49.0 L ABG HCO3 23.8 25.4 H ABG O2 Saturation 91.3 L 87.3 L ABG Base Excess -0.5 2.1 FiO2 90% 94% 01/20/20 20:08 Blood Blood Culture - Final NO GROWTH IN 5 DAYS 01/20/20 01/20/20 21:02 21:02 Creatine Kinase 356 H Troponin I 0.026 NT-Pro-B Natriuret Pep 1580 H Impressions: Chest X-Ray 01/20/20 17:48 IMPRESSION: Patchy left basilar airspace opacities. Mild interstitial prominence bilaterally. Assessment and Plan - Diagnosis (1) COVID-19 Is this a current diagnosis for this admission?: Yes Plan: Covid positive D-dimer, LDH, CRP, and ferritin are all elevated. ABG revealed respiratory alkalosis with worsening hypoxia. Provide supplemental oxygen as needed maintain saturations greater than 89%. Now on max HFNC; will transition to CPAP with follow up ABG. Continue full dose Lovenox. As needed nebulizer treatments. Continue IV azithromycin; Day #5 Continue remdesivir Provided 1 unit convalescent serum Continue daily dexamethasone Zinc, vitamin D, vitamin C, and melatonin supplementation. Encourage pulmonary toilet. Isolation precautions. (2) Pneumonia Qualifiers: Pneumonia type: aspiration pneumonia Aspiration pneumonia type: due to gastric secretions Laterality: left Lung location: lower lobe of lung Qualified Code(s): J69.0 - Pneumonitis due to inhalation of food and vomit Is this a current diagnosis for this admission?: Yes Plan: Initial concern for aspiration pneumonia; subsequently found to have COVID-19. Blood cultures positive for staph hominis (1 set); determined to be a contaminant this Crystal. Otherwise negative at 5 days. Sputum cultures not obtained. Continue IV Azithromycin; last dose today. IV Rocephin is discontinued; received 4 doses. Remaining management as above. (3) Acute hypoxemic respiratory failure Is this a current diagnosis for this admission?: Yes Plan: Secondary #1. Evaluation management as above (4) Acute metabolic encephalopathy Is this a current diagnosis for this admission?: Yes Plan: Multifactorial secondary to Covid pneumonia and hypoxia in the setting of dementia. Haldol prn for agitation that is concerning for safety (getting out of bed, removing oxygen). Supportive care. (5) History of dementia Is this a current diagnosis for this admission?: Yes Plan: Supportive care. Discharge planning consulted. (6) Sepsis Qualifiers: Sepsis type: sepsis due to unspecified organism Sepsis acute organ dysfunction status: with acute organ dysfunction Severe sepsis acute organ dysfunction type: acute respiratory failure Acute respiratory failure type: with hypoxia Severe sepsis shock status: without septic shock Qualified Code(s): A41.9 - Sepsis, unspecified organism; R65.20 - Severe sepsis without septic shock; J96.01 - Acute respiratory failure with hypoxia Is this a current diagnosis for this admission?: Yes Plan: Resolved. Secondary to #1-2 (7) Hyponatremia Is this a current diagnosis for this admission?: Yes Plan: Resolved (8) Leukopenia Qualifiers: Leukopenia type: other Qualified Code(s): D72.818 - Other decreased white blood cell count Is this a current diagnosis for this admission?: Yes Plan: Resolved. - Time Time Spent with patient: 35 or more minutes Medications reviewed and adjusted accordingly: Yes Anticipated Discharge Disposition: undetermined Anticipated Discharge Timeframe: >72 hrs
[2020-01-26 14:42] LABS: ARTERIAL BLOOD BASE EXCESS 1.2 mmol/L; ARTERIAL BLOOD H2CO3 1.18 mmol/L (1.05-1.35); ARTERIAL BLOOD HCO3 25.4 mmol/L (20-24); ARTERIAL BLOOD O2 SATURATION 98.3 % (94-98); ARTERIAL BLOOD PCO2 39.2 mmHg (35-45); ARTERIAL BLOOD PH 7.43 (7.35-7.45); ARTERIAL BLOOD PO2 113.4 mmHg (80-100); ARTERIAL BLOOD TOTAL CO2 26.6 mmol/L (23-27)
[2020-01-26 14:47] LABS: ARTERIAL BLOOD FIO2 100%
--- NOTE | 2020-01-26 17:57 | EKG REPORT ---
SEVERITY:- ABNORMAL ECG - ATRIAL FIBRILLATION, V-RATE 71-98 IVCD, CONSIDER ATYPICAL RBBB : Confirmed by: Thomas Cassidy MD 26-Jan-2020 17:56:15
[2020-01-26] MEDS: AZITHROMYCIN 500 MG in DEXTROSE 5%-WATER 250 ML IV SCH (18:48)
[2020-01-26] MEDS: SIMVASTATIN 10 MG TABLET PO SCH (23:09)
[2020-01-26] MEDS: DONEPEZIL HCL 5 MG TABLET PO SCH (23:09)
[2020-01-27 05:58] LABS: HEMATOCRIT 36.7 % (37.9-51.0); HEMOGLOBIN 13.2 g/dL (13.5-17.0); MEAN CORPUSCULAR HEMOGLOBIN 35.4 pg (27.0-33.4); MEAN CORPUSCULAR VOLUME 98 fl (80-97); PLATELET COUNT 298 10^3/uL (150-450); RED BLOOD COUNT 3.74 10^6/uL (4.35-5.55); RED CELL DISTRIBUTION WIDTH 12.8 % (11.5-14.0); WHITE BLOOD COUNT 4.8 10^3/uL (4.0-10.5)
[2020-01-27 06:16] LABS: ANION GAP 7 (5-19); BLOOD UREA NITROGEN 50 mg/dL (7-20); CALCIUM 8.8 mg/dL (8.4-10.2); CARBON DIOXIDE 29 mmol/L (22-30); CHLORIDE 108 mmol/L (98-107); GLUCOSE 124 mg/dL (75-110); POTASSIUM 4.3 mmol/L (3.6-5.0)
[2020-01-27 06:29] LABS: APPEARANCE,URINE SLIGHTLY-CLOUDY; BILIRUBIN,URINE NEGATIVE (NEGATIVE); COLOR,URINE YELLOW; GLUCOSE, URINE NEGATIVE (NEGATIVE); KETONES,URINE NEGATIVE (NEGATIVE); LEUKOCYTE ESTERASE,URINE TRACE (NEGATIVE); NITRITE,URINE NEGATIVE (NEGATIVE); PROTEIN,URINE 30 mg/dL (NEGATIVE); URINE SPECIFIC GRAVITY 1.021; UROBILINOGEN,URINE NEGATIVE mg/dL (<2.0)
[2020-01-27] MEDS: ENOXAPARIN SODIUM INJ 120 MG/0.8 ML DISP.SYRIN SUBCUT SCH ×2 (10:47→21:03)
[2020-01-27] MEDS: REMDESIVIR (EUA) 100 MG in NORMAL SALINE 250 ML IV SCH (10:48)
[2020-01-27] MEDS: DEXAMETHASONE SOD PHOS INJ 10 MG/1 ML VIAL IV SCH (10:49)
[2020-01-27] MEDS: PANTOPRAZOLE SODIUM 40 MG TABLET.DR PO SCH (10:49)
[2020-01-27] MEDS: AMLODIPINE BESYLATE 5 MG TABLET PO SCH (10:49)
[2020-01-27] MEDS: ASPIRIN 81 MG TABLET, ENT COATED PO SCH (10:49)
[2020-01-27] MEDS: CEFTRIAXONE 1 GM/D5W RTU 1 GM/50 ML RTUPB IV SCH (10:49)
[2020-01-27] MEDS: CYANOCOBALAMIN (VITAMIN B-12) 1,000 MCG TABLET PO SCH (10:50)
[2020-01-27] MEDS: VITAMIN E (DL, ACETATE) 400 UNIT CAPSULE PO SCH (10:50)
[2020-01-27] MEDS: BENAZEPRIL HCL 20 MG TABLET PO SCH (10:50)
[2020-01-27] MEDS: ASCORBIC ACID 500 MG TABLET PO SCH (10:50)
[2020-01-27] MEDS: SERTRALINE HCL 50 MG TABLET PO SCH (10:51)
[2020-01-27] MEDS: HALOPERIDOL LACTATE INJ 5 MG/1 ML VIAL IV PRN ×3 (12:12→22:36)
--- NOTE | 2020-01-27 17:56 | PDOC PROGRESS REPORT ---
Subjective Progress Note for:: 01/27/20 Subjective:: The patient is an 79-year-old male with a past medical history of dementia who was admitted 01/21/2020 for acute hypoxic respiratory failure and sepsis secondary to pneumonia; subsequently found to have COVID-19. Patient was seen on afternoon rounds. He is resting in bed on CPAP; FiO2 50%, IPAP 8. He is sleeping soundly and I did not make attempts to wake him (recently medicated w/ haldol for anxiety r/t CPAP). He does appear to be comfortable and is not noted to be in any acute distress. ROS is therefore limited. Afebrile >72 hours Discussed plan of care with nursing. Reason For Visit: SEPSIS, LLL PNA Physical Exam Vital Signs: Temp Pulse Resp BP Pulse Ox 98.2 F 81 23 H 139/68 H 94 01/27/20 15:56 01/27/20 15:56 01/27/20 16:00 01/27/20 15:56 01/27/20 16:00 Intake & Output 01/26/20 01/27/20 01/28/20 06:59 06:59 06:59 Intake Total 698 668 300 Output Total 900 1000 Balance -202 -332 300 Weight 119.6 kg 119.2 kg General appearance: PRESENT: no acute distress, cooperative, well-developed, well-nourished Head exam: PRESENT: atraumatic, normocephalic Eye exam: PRESENT: conjunctiva pink, EOMI, PERRLA. ABSENT: scleral icterus Mouth exam: PRESENT: moist, tongue midline Respiratory exam: PRESENT: clear to auscultation mariana, decreased breath sounds - diminished throughout, symmetrical, unlabored, other - CPAP. ABSENT: rales, rhonchi, wheezes Cardiovascular exam: PRESENT: RRR. ABSENT: diastolic murmur, rubs, systolic murmur Pulses: PRESENT: normal dorsalis pedis pul Vascular exam: PRESENT: normal capillary refill Gentrourinary exam: PRESENT: indwelling catheter Extremities exam: PRESENT: full ROM. ABSENT: calf tenderness, clubbing, pedal edema Neurological exam: PRESENT: CN II-XII grossly intact, other - sleeping. ABSENT: motor sensory deficit Skin exam: PRESENT: dry, intact, warm. ABSENT: cyanosis, rash Results Laboratory Results: 01/27/20 05:15 01/27/20 05:15 01/27/20 01/27/20 01/27/20 05:15 05:15 05:40 WBC 4.8 RBC 3.74 L Hgb 13.2 L Hct 36.7 L MCV 98 H MCH 35.4 H MCHC 36.0 RDW 12.8 Plt Count 298 Sodium 143.7 Potassium 4.3 Chloride 108 H Carbon Dioxide 29 Anion Gap 7 BUN 50 H Creatinine 1.04 Est GFR ( Amer) > 60 Glucose 124 H Calcium 8.8 Ferritin 705.00 H Urine Color YELLOW Urine Appearance SLIGHTLY-CLOUDY Urine pH 6.0 Ur Specific [place] 1.021 Urine Protein 30 H Urine Glucose (UA) NEGATIVE Urine Ketones NEGATIVE Urine Blood LARGE H Urine Nitrite NEGATIVE Ur Leukocyte Esterase TRACE H Urine WBC (Auto) 25 Urine RBC (Auto) >182 01/20/20 01/20/20 21:02 21:02 Creatine Kinase 356 H Troponin I 0.026 NT-Pro-B Natriuret Pep 1580 H Impressions: Chest X-Ray 01/20/20 17:48 IMPRESSION: Patchy left basilar airspace opacities. Mild interstitial prominence bilaterally. Assessment and Plan - Diagnosis (1) COVID-19 Is this a current diagnosis for this admission?: Yes Plan: Covid positive D-dimer CRP, and LDH are elevated. Ferritin 1240-> 705 ABG revealed respiratory alkalosis with worsening hypoxia. Provide supplemental oxygen as needed maintain saturations greater than 89%. Now on CPAP with follow up ABG showing improved oxygenation. Continue full dose Lovenox. As needed nebulizer treatments. Completed IV azithromycin Completed remdesivir Provided 1 unit convalescent serum Continue daily dexamethasone Zinc, vitamin D, vitamin C, and melatonin supplementation. Encourage pulmonary toilet. Isolation precautions. (2) Pneumonia Qualifiers: Pneumonia type: aspiration pneumonia Aspiration pneumonia type: due to lowell miguel secretions Laterality: left Lung location: lower lobe of lung Qualified Code(s): J69.0 - Pneumonitis due to inhalation of food and vomit Is this a current diagnosis for this admission?: Yes Plan: Initial concern for aspiration pneumonia; subsequently found to have COVID-19. Blood cultures positive for staph hominis (1 set); determined to be a contaminant. Otherwise negative at 5 days. Sputum cultures not obtained. Completed IV Azithromycin and Rocephin Remaining management as above. (3) Acute hypoxemic respiratory failure Is this a current diagnosis for this admission?: Yes Plan: Secondary #1. Evaluation management as above (4) Acute metabolic encephalopathy Is this a current diagnosis for this admission?: Yes Plan: Multifactorial secondary to Covid pneumonia and hypoxia in the setting of dementia. Haldol prn for agitation that is concerning for safety (getting out of bed, removing oxygen). Supportive care. (5) History of dementia Is this a current diagnosis for this admission?: Yes Plan: Supportive care. Discharge planning consulted. (6) Sepsis Qualifiers: Sepsis type: sepsis due to unspecified organism Sepsis acute organ dysfunction status: with acute organ dysfunction Severe sepsis acute organ dysfunction type: acute respiratory failure Acute respiratory failure type: with hypoxia Severe sepsis shock status: without septic shock Qualified Code(s): A41.9 - Sepsis, unspecified organism; R65.20 - Severe sepsis without septic shock; J96.01 - Acute respiratory failure with hypoxia Is this a current diagnosis for this admission?: Yes Plan: Resolved. Secondary to #1-2 (7) Hyponatremia Is this a current diagnosis for this admission?: Yes Plan: Resolved (8) Leukopenia Qualifiers: Leukopenia type: other Qualified Code(s): D72.818 - Other decreased white blood cell count Is this a current diagnosis for this admission?: Yes Plan: Resolved. - Plan Summary Summary: Updated patient's , Olga Peterson, by phone today. She and their two teenage grandsons (Olga is primary caregivers non medical) have all tested positive. Did discuss self-care at home when positive w/ COVID. We discussed ways to go about obtaining groceries and OTC medications safely. We also discussed warning signs to seek further healthcare assistance either through PCP or ED. - Time Time Spent with patient: 35 or more minutes Medications reviewed and adjusted accordingly: Yes Anticipated Discharge Disposition: [facility] Anticipated Discharge Timeframe: undetermined
[2020-01-27] MEDS: SIMVASTATIN 10 MG TABLET PO SCH (21:03)
[2020-01-27] MEDS: DONEPEZIL HCL 5 MG TABLET PO SCH (21:05)
[2020-01-28] MEDS: HALOPERIDOL LACTATE INJ 5 MG/1 ML VIAL IV PRN ×4 (02:38→22:19)
[2020-01-28 06:23] LABS: HEMOGLOBIN 12.8 g/dL (13.5-17.0); MEAN CORPUSCULAR HEMOGLOBIN 34.7 pg (27.0-33.4); MEAN CORPUSCULAR HGB CONC 35.6 g/dL (32.0-36.0); MEAN CORPUSCULAR VOLUME 98 fl (80-97); PLATELET COUNT 335 10^3/uL (150-450); RED BLOOD COUNT 3.69 10^6/uL (4.35-5.55); RED CELL DISTRIBUTION WIDTH 12.9 % (11.5-14.0); WHITE BLOOD COUNT 6.6 10^3/uL (4.0-10.5)
[2020-01-28 06:38] LABS: ANION GAP 9 (5-19); BLOOD UREA NITROGEN 51 mg/dL (7-20); CARBON DIOXIDE 30 mmol/L (22-30); CHLORIDE 107 mmol/L (98-107); GLUCOSE 106 mg/dL (75-110); POTASSIUM 4.2 mmol/L (3.6-5.0)
[2020-01-28] MEDS: NORMAL SALINE 1000 ML 1,000 ML IV PRN (08:43)
[2020-01-28] MEDS: ENOXAPARIN SODIUM INJ 120 MG/0.8 ML DISP.SYRIN SUBCUT SCH ×2 (09:20→21:32)
[2020-01-28] MEDS: AMLODIPINE BESYLATE 5 MG TABLET PO SCH (09:20)
[2020-01-28] MEDS: ASCORBIC ACID 500 MG TABLET PO SCH (09:20)
[2020-01-28] MEDS: CYANOCOBALAMIN (VITAMIN B-12) 1,000 MCG TABLET PO SCH (09:20)
[2020-01-28] MEDS: ASPIRIN 81 MG TABLET, ENT COATED PO SCH (09:20)
[2020-01-28] MEDS: DEXAMETHASONE SOD PHOS INJ 10 MG/1 ML VIAL IV SCH (09:20)
[2020-01-28] MEDS: PANTOPRAZOLE SODIUM 40 MG TABLET.DR PO SCH (09:20)
[2020-01-28] MEDS: BENAZEPRIL HCL 20 MG TABLET PO SCH (09:20)
[2020-01-28] MEDS: SERTRALINE HCL 50 MG TABLET PO SCH (09:20)
[2020-01-28] MEDS: VITAMIN E (DL, ACETATE) 400 UNIT CAPSULE PO SCH (09:20)
[2020-01-28] MEDS: IPRATROPIUM/ALBUTEROL 0.5-2.5 MG/3 ML AMPUL NEB PRN (10:31)
[2020-01-28] MEDS ORDERED: MORPHINE SULFATE 10 MG/ML INJ IV PRN (10:39)
[2020-01-28] MEDS ORDERED: ALBUTEROL SULFATE 0.083% NEB 2.5 MG/3 ML AMPUL NEB PRN (10:48)
--- NOTE | 2020-01-28 12:40 | PDOC PROGRESS REPORT ---
Subjective Progress Note for:: 01/28/20 Subjective:: The patient is an 79-year-old male with a past medical history of dementia who was admitted 01/21/2020 for acute hypoxic respiratory failure and sepsis secondary to pneumonia; subsequently found to have COVID-19. Patient was seen on afternoon rounds. He is resting in bed on HFNC; 95% FiO2 60lpm w/ SpO2 89-92%. On CPAP, maintains SpO2 >90% on 8/50%. Unfortunately, is very agitated and confused; pulling at oxygen and or catheter. He has now developed some hematuria. He frequently calls out " help me," or "ouch," but is unable to state what is bothering him and when asked if he is in pain says no. He has been requiring frequent Haldol and intermittent soft limb restraints to ensure safety. ROS is limited r/t confusion. Afebrile >72 hours Discussed plan of care with nursing and RT. Reason For Visit: SEPSIS, LLL PNA Physical Exam Vital Signs: Temp Pulse Resp BP Pulse Ox 98.4 F 66 27 H 133/80 H 90 L 01/28/20 07:55 01/28/20 10:41 01/28/20 10:41 01/28/20 07:55 01/28/20 10:41 Intake & Output 01/27/20 01/28/20 01/29/20 06:59 06:59 06:59 Intake Total 668 300 Output Total 1000 1050 Balance -332 -750 Weight 119.2 kg 118.5 kg General appearance: PRESENT: hard of hearing, mild distress, well-developed, well-nourished - overweight Head exam: PRESENT: atraumatic, normocephalic Eye exam: PRESENT: conjunctiva pink, EOMI, PERRLA. ABSENT: scleral icterus Mouth exam: PRESENT: dry mucosa, tongue midline Respiratory exam: PRESENT: symmetrical, tachypnea, wheezes - throughout, other - High FiO2 requirements to maintain oxygen saturation. ABSENT: accessory muscle use, rales, rhonchi Cardiovascular exam: PRESENT: RRR, +S1, +S2. ABSENT: diastolic murmur, rubs, systolic murmur Pulses: PRESENT: normal dorsalis pedis pul Vascular exam: PRESENT: normal capillary refill GI/Abdominal exam: PRESENT: normal bowel sounds, soft. ABSENT: distended, guarding, mass, organolmegaly, rebound, tenderness Rectal exam: PRESENT: deferred Gentrourinary exam: PRESENT: indwelling catheter Extremities exam: PRESENT: full ROM. ABSENT: calf tenderness, clubbing, pedal edema Neurological exam: PRESENT: alert, awake, oriented to person, CN II-XII grossly intact, other - disorientated. ABSENT: oriented to place, oriented to time, oriented to situation, motor sensory deficit Psychiatric exam: PRESENT: agitated, normal mood. ABSENT: homicidal ideation, suicidal ideation Skin exam: PRESENT: dry, intact, warm. ABSENT: cyanosis, rash Results Laboratory Results: 01/28/20 05:50 01/28/20 05:50 01/28/20 01/28/20 05:50 05:50 WBC 6.6 RBC 3.69 L Hgb 12.8 L Hct 36.0 L MCV 98 H MCH 34.7 H MCHC 35.6 RDW 12.9 Plt Count 335 Sodium 145.5 H Potassium 4.2 Chloride 107 Carbon Dioxide 30 Anion Gap 9 BUN 51 H Creatinine 1.11 Est GFR ( Amer) > 60 Glucose 106 Calcium 9.0 01/20/20 01/20/20 21:02 21:02 Creatine Kinase 356 H Troponin I 0.026 NT-Pro-B Natriuret Pep 1580 H Impressions: Chest X-Ray 01/20/20 17:48 IMPRESSION: Patchy left basilar airspace opacities. Mild interstitial prominence bilaterally. Assessment and Plan - Diagnosis (1) COVID-19 Is this a current diagnosis for this admission?: Yes Plan: Covid positive D-dimer CRP, and LDH are elevated. Ferritin 1240-> 705 ABG revealed respiratory alkalosis with worsening hypoxia. Provide supplemental oxygen as needed maintain saturations greater than 89%. Now on CPAP with follow up ABG showing improved oxygenation. Continue full dose Lovenox. Scheduled and as needed nebulizer treatments. Completed IV azithromycin Completed remdesivir Provided 1 unit convalescent serum Continue daily dexamethasone Zinc, vitamin D, vitamin C, and melatonin supplementation. Encourage pulmonary toilet. Isolation precautions. (2) Pneumonia Qualifiers: Pneumonia type: aspiration pneumonia Aspiration pneumonia type: due to gastric secretions Laterality: left Lung location: lower lobe of lung Qualified Code(s): J69.0 - Pneumonitis due to inhalation of food and vomit Is this a current diagnosis for this admission?: Yes Plan: Initial concern for aspiration pneumonia; subsequently found to have COVID-19. Blood cultures positive for staph hominis (1 set); determined to be a contaminant. Otherwise negative at 5 days. Sputum cultures not obtained. Completed IV Azithromycin and Rocephin Remaining management as above. (3) Acute hypoxemic respiratory failure Is this a current diagnosis for this admission?: Yes Plan: Secondary #1. Evaluation management as above (4) Acute metabolic encephalopathy Is this a current diagnosis for this admission?: Yes Plan: Multifactorial secondary to Covid pneumonia and hypoxia in the setting of dementia. Haldol prn for agitation that is concerning for safety (getting out of bed, removing oxygen). Supportive care. (5) History of dementia Is this a current diagnosis for this admission?: Yes Plan: Supportive care. Discharge planning consulted. (6) Sepsis Qualifiers: Sepsis type: sepsis due to unspecified organism Sepsis acute organ dysfunction status: with acute organ dysfunction Severe sepsis acute organ dysfunction type: acute respiratory failure Acute respiratory failure type: with hypoxia Severe sepsis shock status: without septic shock Qualified Code(s): A41.9 - Sepsis, unspecified organism; R65.20 - Severe sepsis without septic shock; J96.01 - Acute respiratory failure with hypoxia Is this a current diagnosis for this admission?: Yes Plan: Resolved. Secondary to #1-2 (7) Hyponatremia Is this a current diagnosis for this admission?: Yes Plan: Resolved (8) Leukopenia Qualifiers: Leukopenia type: other Qualified Code(s): D72.818 - Other decreased white blood cell count Is this a current diagnosis for this admission?: Yes Plan: Resolved. (9) Dehydration Is this a current diagnosis for this admission?: Yes Plan: Gentle IVF - Time Time Spent with patient: 35 or more minutes Medications reviewed and adjusted accordingly: Yes Anticipated Discharge Disposition: [facility] Anticipated Discharge Timeframe: >72 hrs
[2020-01-28] MEDS: IPRATROPIUM/ALBUTEROL 0.5-2.5 MG/3 ML AMPUL NEB SCH ×2 (13:53→21:00)
[2020-01-28] MEDS: DONEPEZIL HCL 5 MG TABLET PO SCH (21:31)
[2020-01-28] MEDS: SIMVASTATIN 10 MG TABLET PO SCH (21:31)
[2020-01-29] MEDS: IPRATROPIUM/ALBUTEROL 0.5-2.5 MG/3 ML AMPUL NEB SCH ×4 (01:58→20:27)
[2020-01-29] MEDS: NORMAL SALINE 1000 ML 1,000 ML IV PRN ×3 (02:46→21:32)
[2020-01-29] MEDS: HALOPERIDOL LACTATE INJ 5 MG/1 ML VIAL IV PRN (03:42)
[2020-01-29 05:47] LABS: ABSOLUTE RETICS # 0.039 10^6/uL (0.028-0.122); HEMATOCRIT 32.7 % (37.9-51.0); HEMOGLOBIN 11.7 g/dL (13.5-17.0); MEAN CORPUSCULAR HEMOGLOBIN 35.2 pg (27.0-33.4); MEAN CORPUSCULAR HGB CONC 35.8 g/dL (32.0-36.0); MEAN CORPUSCULAR VOLUME 98 fl (80-97); PLATELET COUNT 338 10^3/uL (150-450); RED BLOOD COUNT 3.33 10^6/uL (4.35-5.55); RETICULOCYTE COUNT (AUTO) 1.18 % (0.66-2.85); WHITE BLOOD COUNT 7.7 10^3/uL (4.0-10.5)
[2020-01-29 06:04] LABS: ANION GAP 7 (5-19); BLOOD UREA NITROGEN 44 mg/dL (7-20); CALCIUM 8.5 mg/dL (8.4-10.2); CARBON DIOXIDE 27 mmol/L (22-30); CHLORIDE 105 mmol/L (98-107); GLUCOSE 87 mg/dL (75-110); IRON(TIBC) 44.2 ug/dL (49-181)
[2020-01-29] MEDS: ACETAMINOPHEN 325 MG TABLET PO PRN ×2 (06:17→23:03)
[2020-01-29] MEDS: CYANOCOBALAMIN (VITAMIN B-12) 1,000 MCG TABLET PO SCH (09:37)
[2020-01-29] MEDS: ENOXAPARIN SODIUM INJ 120 MG/0.8 ML DISP.SYRIN SUBCUT SCH ×2 (09:37→23:02)
[2020-01-29] MEDS: VITAMIN E (DL, ACETATE) 400 UNIT CAPSULE PO SCH (09:37)
[2020-01-29] MEDS: PANTOPRAZOLE SODIUM 40 MG TABLET.DR PO SCH (09:37)
[2020-01-29] MEDS: SERTRALINE HCL 50 MG TABLET PO SCH (09:37)
[2020-01-29] MEDS: ASPIRIN 81 MG TABLET, ENT COATED PO SCH (09:37)
[2020-01-29] MEDS: ASCORBIC ACID 500 MG TABLET PO SCH (09:37)
[2020-01-29] MEDS: AMLODIPINE BESYLATE 5 MG TABLET PO SCH (09:37)
[2020-01-29] MEDS: DEXAMETHASONE SOD PHOS INJ 10 MG/1 ML VIAL IV SCH (09:38)
[2020-01-29] MEDS: BENAZEPRIL HCL 20 MG TABLET PO SCH (09:38)
--- NOTE | 2020-01-29 13:51 | PDOC PROGRESS REPORT ---
Subjective Progress Note for:: 01/29/20 Subjective:: The patient is an 79-year-old male with a past medical history of dementia who was admitted 01/21/2020 for acute hypoxic respiratory failure and sepsis secondary to pneumonia; subsequently found to have COVID-19. Patient was seen on afternoon rounds. He is resting in bed on HFNC; 95% FiO2 60lpm w/ SpO2 89-92%. On CPAP, maintains SpO2 >90% on 8/50%. He is sleeping, but wakes easily. He answered a few questions but then tells me he is tired and does not want to talk. He denied pain, hunger, and thirst. Did not answer further ROS questions; therefore review is limited. He does appear to be comfort at this time. No acute distress noted. Afebrile >72 hours No concerns per nursing. Reason For Visit: SEPSIS, LLL PNA Physical Exam Vital Signs: Temp Pulse Resp BP Pulse Ox 97.9 F 71 22 H 119/59 L 90 L 01/29/20 10:00 01/29/20 08:09 01/29/20 10:00 01/29/20 08:09 01/29/20 10:00 Intake & Output 01/28/20 01/29/20 01/30/20 06:59 06:59 06:59 Intake Total 300 1720 Output Total 1050 750 Balance -750 970 Weight 118.5 kg 113.7 kg General appearance: PRESENT: no acute distress, hard of hearing, well-developed, well-nourished - Overweight Head exam: PRESENT: atraumatic, normocephalic Eye exam: PRESENT: conjunctiva pink, EOMI, PERRLA. ABSENT: scleral icterus Mouth exam: PRESENT: moist, tongue midline Respiratory exam: PRESENT: clear to auscultation mariana, decreased breath sounds - Throughout, symmetrical, tachypnea, other - High FiO2 requirement to maintain oxygen saturations. ABSENT: rales, rhonchi, wheezes Cardiovascular exam: PRESENT: RRR. ABSENT: diastolic murmur, rubs, systolic murmur Vascular exam: PRESENT: normal capillary refill Gentrourinary exam: PRESENT: indwelling catheter Extremities exam: PRESENT: full ROM - Moves all extremities spontaneously. ABSENT: calf tenderness, clubbing, pedal edema Neurological exam: PRESENT: alert, awake, oriented to person, CN II-XII grossly intact, other - Conversational and socially appropriate today for a brief period of time; overall disoriented and easily agitated. ABSENT: oriented to place, oriented to time, oriented to situation, motor sensory deficit Psychiatric exam: PRESENT: appropriate affect, normal mood. ABSENT: homicidal ideation, suicidal ideation Skin exam: PRESENT: dry, intact, warm. ABSENT: cyanosis, rash Results Laboratory Results: 01/29/20 05:20 01/29/20 05:20 01/29/20 01/29/20 05:20 05:20 WBC 7.7 RBC 3.33 L Hgb 11.7 L Hct 32.7 L MCV 98 H MCH 35.2 H MCHC 35.8 RDW 13.0 Plt Count 338 Retic Count (auto) 1.18 Sodium 138.5 Potassium 4.0 Chloride 105 Carbon Dioxide 27 Anion Gap 7 BUN 44 H Creatinine 0.95 Est GFR ( Amer) > 60 Glucose 87 Calcium 8.5 Iron 44.2 L TIBC 188 L % Saturation 24 Ferritin 624.00 H Vitamin B12 > 1000.0 H Folate 12.00 01/20/20 01/20/20 21:02 21:02 Creatine Kinase 356 H Troponin I 0.026 NT-Pro-B Natriuret Pep 1580 H Impressions: Chest X-Ray 01/20/20 17:48 IMPRESSION: Patchy left basilar airspace opacities. Mild interstitial prominence bilaterally. Assessment and Plan - Diagnosis (1) COVID-19 Is this a current diagnosis for this admission?: Yes Plan: Covid positive D-dimer CRP, and LDH are elevated. Ferritin 1240-> 705-> 624 ABG revealed respiratory alkalosis with hypoxia. Provide supplemental oxygen as needed maintain saturations greater than 89%. CPAP/HFNC as clinical condition indicates Continue full dose Lovenox. Scheduled and as needed nebulizer treatments. Completed IV azithromycin Completed remdesivir Provided 1 unit convalescent serum Continue daily dexamethasone Zinc, vitamin D, vitamin C, and melatonin supplementation. Encourage pulmonary toilet. Isolation precautions. (2) Pneumonia Qualifiers: Pneumonia type: aspiration pneumonia Aspiration pneumonia type: due to gastric secretions Laterality: left Lung location: lower lobe of lung Qualified Code(s): J69.0 - Pneumonitis due to inhalation of food and vomit Is this a current diagnosis for this admission?: Yes Plan: Initial concern for aspiration pneumonia; subsequently found to have COVID-19. Blood cultures positive for staph hominis (1 set); determined to be a contamina nt. Otherwise negative at 5 days. Sputum cultures not obtained. Completed IV Azithromycin and Rocephin Remaining management as above. (3) Acute hypoxemic respiratory failure Is this a current diagnosis for this admission?: Yes Plan: Secondary #1. Evaluation management as above (4) Acute metabolic encephalopathy Is this a current diagnosis for this admission?: Yes Plan: Multifactorial secondary to Covid pneumonia and hypoxia in the setting of dementia. Supportive care. (5) History of dementia Is this a current diagnosis for this admission?: Yes Plan: Supportive care. Discharge planning consulted. (6) Sepsis Qualifiers: Sepsis type: sepsis due to unspecified organism Sepsis acute organ dysfunction status: with acute organ dysfunction Severe sepsis acute organ dysfunction type: acute respiratory failure Acute respiratory failure type: with hypoxia Severe sepsis shock status: without septic shock Qualified Code(s): A41.9 - Sepsis, unspecified organism; R65.20 - Severe sepsis without septic shock; J96.01 - Acute respiratory failure with hypoxia Is this a current diagnosis for this admission?: Yes Plan: Resolved. Secondary to #1-2 (7) Hyponatremia Is this a current diagnosis for this admission?: Yes Plan: Resolved (8) Leukopenia Qualifiers: Leukopenia type: other Qualified Code(s): D72.818 - Other decreased white blood cell count Is this a current diagnosis for this admission?: Yes Plan: Resolved. (9) Dehydration Is this a current diagnosis for this admission?: Yes Plan: Improved; moist mucous membranes, downtrending BUN, increased urine output. Continue gentle IVF (10) Anemia Qualifiers: Anemia type: iron deficiency Is this a current diagnosis for this admission?: Yes Plan: Mild iron deficiency anemia Oral iron and multivitamin supplementation Monitor CBC (11) Prolonged Q-T interval on ECG Is this a current diagnosis for this admission?: Yes Plan: Have discontinued Aricept, Zofran, Haldol Repeat EKG in the morning. - Time Time Spent with patient: 25-34 minutes Medications reviewed and adjusted accordingly: Yes Anticipated Discharge Disposition: [facility] Anticipated Discharge Timeframe: >72 hrs
[2020-01-29] MEDS ORDERED: MORPHINE SULFATE 10 MG/ML INJ IV ONE (18:05)
--- NOTE | 2020-01-29 19:19 | EKG REPORT ---
SEVERITY:- ABNORMAL ECG - ATRIAL FIBRILLATION, V-RATE 68-68 LOW VOLTAGE IN FRONTAL LEADS NONSPECIFIC T ABNORMALITIES, DIFFUSE LEADS BORDERLINE PROLONGED QT INTERVAL : Confirmed by: Thomas Cassidy MD 29-Jan-2020 19:17:45
[2020-01-29] MEDS ORDERED: NORMAL SALINE 1000 ML 1,000 ML IV ONE ×2 (21:00→22:30)
[2020-01-29] MEDS: SIMVASTATIN 10 MG TABLET PO SCH (23:02)
[2020-01-30] MEDS: IPRATROPIUM/ALBUTEROL 0.5-2.5 MG/3 ML AMPUL NEB SCH ×4 (02:06→19:59)
[2020-01-30] MEDS ORDERED: RINGERS SOLUTION,LACTATED 1,000 ML IV ONE (02:24)
[2020-01-30 02:33] LABS: ARTERIAL BLOOD BASE EXCESS -1.4 mmol/L; ARTERIAL BLOOD H2CO3 0.94 mmol/L (1.05-1.35); ARTERIAL BLOOD O2 SATURATION 89.5 % (94-98); ARTERIAL BLOOD PCO2 31.3 mmHg (35-45); ARTERIAL BLOOD PH 7.46 (7.35-7.45); ARTERIAL BLOOD PO2 52.5 mmHg (80-100); ARTERIAL BLOOD TOTAL CO2 22.9 mmol/L (23-27)
[2020-01-30 02:36] LABS: ARTERIAL BLOOD FIO2 95%
[2020-01-30 02:47] LABS: ALBUMIN 2.2 g/dL (3.5-5.0); ALKALINE PHOSPHATASE 54 U/L (38-126); ANION GAP 7 (5-19); ASPARTATE AMINO TRANSFERASE 61 U/L (17-59); BILIRUBIN,DIRECT 0.3 mg/dL (0.0-0.4); BILIRUBIN,TOTAL 0.7 mg/dL (0.2-1.3); BLOOD UREA NITROGEN 43 mg/dL (7-20); CALCIUM 7.4 mg/dL (8.4-10.2); CARBON DIOXIDE 23 mmol/L (22-30); CHLORIDE 107 mmol/L (98-107); GLUCOSE 104 mg/dL (75-110); POTASSIUM 4.4 mmol/L (3.6-5.0); TOTAL PROTEIN 4.5 g/dL (6.3-8.2)
[2020-01-30 04:45] LABS: HEMATOCRIT 21.8 % (37.9-51.0); MEAN CORPUSCULAR HEMOGLOBIN 34.8 pg (27.0-33.4); MEAN CORPUSCULAR HGB CONC 35.7 g/dL (32.0-36.0); MEAN CORPUSCULAR VOLUME 98 fl (80-97); PLATELET COUNT 322 10^3/uL (150-450); RED BLOOD COUNT 2.23 10^6/uL (4.35-5.55); WHITE BLOOD COUNT 10.3 10^3/uL (4.0-10.5)
[2020-01-30 04:49] LABS: HEMOGLOBIN 7.8 g/dL (13.5-17.0)
--- NOTE | 2020-01-30 05:20 | Progress Note ---
Provider Note Provider Note: Mr. Lukasz Peterson is an 79-year-old male who was admitted with pneumonia secondary to COVID-19. I received a call approximately 3:30 AM from the hospitalist stating patient was hypotensive blood pressure 60 over 40s he had received 2 L of normal saline blood pressure did respond and was low 100s over 60s, although this did not last in his blood pressure again dropped into the 70s. I evaluated the patient and ordered 1 L of LR. I instructed the nursing staff to call me if his blood pressure did not respond as we may need to start dopamine. His BP did respond his pressures have been 100s over 40s 50s with a map of 60-78. We will continue to follow call with any questions or concerns.
--- NOTE | 2020-01-30 09:14 | RADIOLOGY REPORT (SQ) ---
EXAM DESCRIPTION: CHEST SINGLE VIEW IMAGES COMPLETED DATE/TIME: 01/30/2020 9:00 am REASON FOR STUDY: hypoxia COMPARISON: 01/20/2020 EXAM PARAMETERS: NUMBER OF VIEWS: One view. TECHNIQUE: Single frontal radiographic view of the chest acquired. RADIATION DOSE: NA LIMITATIONS: None. FINDINGS: LUNGS AND PLEURA: Increasing bilateral airspace disease. Changes are most prominent in th e left base. There is new infiltrate in the right upper lobe as well. MEDIASTINUM AND HILAR STRUCTURES: No masses. Contour normal. HEART AND VASCULAR STRUCTURES: Stable in appearance. BONES: No acute findings. HARDWARE: None in the chest. OTHER: No other significant finding. IMPRESSION: Increasing bilateral airspace disease. TECHNICAL DOCUMENTATION: JOB ID: [id number] [email or web address]- All Rights Reserved Reading location - IP/workstation name: [email or web address]
[2020-01-30] MEDS: AMLODIPINE BESYLATE 5 MG TABLET PO SCH (10:33)
[2020-01-30] MEDS: CYANOCOBALAMIN (VITAMIN B-12) 1,000 MCG TABLET PO SCH (10:33)
[2020-01-30] MEDS: MULTIVITAMIN TABLET PO SCH (10:33)
[2020-01-30] MEDS: ASPIRIN 81 MG TABLET, ENT COATED PO SCH (10:33)
[2020-01-30] MEDS: FERROUS SULFATE 325 MG TABLET PO SCH (10:33)
[2020-01-30] MEDS: PANTOPRAZOLE SODIUM 40 MG TABLET.DR PO SCH (10:35)
[2020-01-30] MEDS: ASCORBIC ACID 500 MG TABLET PO SCH (10:37)
[2020-01-30] MEDS: VITAMIN E (DL, ACETATE) 400 UNIT CAPSULE PO SCH (10:38)
[2020-01-30] MEDS: BENAZEPRIL HCL 20 MG TABLET PO SCH (10:39)
[2020-01-30] MEDS: DEXAMETHASONE SOD PHOS INJ 10 MG/1 ML VIAL IV SCH (10:39)
[2020-01-30 11:00] LABS: HEMATOCRIT 23.4 % (37.9-51.0); HEMOGLOBIN 8.1 g/dL (13.5-17.0); MEAN CORPUSCULAR HEMOGLOBIN 34.5 pg (27.0-33.4); MEAN CORPUSCULAR HGB CONC 34.5 g/dL (32.0-36.0); MEAN CORPUSCULAR VOLUME 100 fl (80-97); PLATELET COUNT 365 10^3/uL (150-450); RED BLOOD COUNT 2.35 10^6/uL (4.35-5.55); RED CELL DISTRIBUTION WIDTH 12.8 % (11.5-14.0); WHITE BLOOD COUNT 11.2 10^3/uL (4.0-10.5)
[2020-01-30] MEDS ORDERED: DEXAMETHASONE SOD PHOSPHATE INJ 4 MG/1 ML VIAL IV ONE (15:00)
--- NOTE | 2020-01-30 15:02 | PDOC PROGRESS REPORT ---
Subjective Progress Note for:: 01/30/20 Subjective:: The patient is an 79-year-old male with a past medical history of dementia who was admitted 01/21/2020 for acute hypoxic respiratory failure and sepsis secondary to pneumonia; subsequently found to have COVID-19. Patient was seen on morning rounds. He is resting in bed on CPAP, maintains SpO2 >90% on 6/50%. On HFNC, patient regularly desats to the mid/high 80s. He was sleeping, but woke easily. He is confused but socially appropriate. He was able to say no when I asked him if he was hungry or wanted something to drink. But then he asked me to help him get his shoes so that he can take the dog for a walk. He was unable to answer ROS questions. He does appear to be comfortable and not noted to be in acute distress at this time; improved from yesterday. He continues to be tachypneic and desaturates quickly when off CPAP. Afebrile >72 hours No concerns per nursing. Reason For Visit: SEPSIS, LLL PNA Physical Exam Vital Signs: Temp Pulse Resp BP Pulse Ox 98.6 F 70 33 H 116/57 L 98 01/30/20 08:00 01/30/20 14:00 01/30/20 14:00 01/30/20 08:00 01/30/20 14:00 Intake & Output 01/29/20 01/30/20 01/31/20 06:59 06:59 06:59 Intake Total 1720 3351 Output Total 750 950 Balance 970 2401 Weight 113.7 kg 113.7 kg General appearance: PRESENT: no acute distress, disheveled, hard of hearing, obese, well-developed, well-nourished Head exam: PRESENT: atraumatic, normocephalic Eye exam: PRESENT: conjunctiva pink, EOMI, PERRLA. ABSENT: scleral icterus Mouth exam: PRESENT: moist, tongue midline Teeth exam: PRESENT: edentulous Respiratory exam: PRESENT: symmetrical, tachypnea, wheezes - throughout, other - CPAP. ABSENT: rales, rhonchi Cardiovascular exam: PRESENT: RRR, +S2 Pulses: PRESENT: normal dorsalis pedis pul Vascular exam: PRESENT: normal capillary refill GI/Abdominal exam: PRESENT: normal bowel sounds, soft. ABSENT: distended, guarding, mass, organolmegaly, rebound, tenderness Rectal exam: PRESENT: deferred Gentrourinary exam: PRESENT: indwelling catheter Extremities exam: PRESENT: full ROM - moves all extremities spontaneously. ABSENT: calf tenderness, clubbing, pedal edema Musculoskeletal exam: PRESENT: ambulatory Neurological exam: PRESENT: alert, awake, oriented to person, CN II-XII grossly intact, other - Pleasantly confused. Persistent disorientation/delerious and easily agitated.. ABSENT: motor sensory deficit Psychiatric exam: PRESENT: appropriate affect, normal mood. ABSENT: homicidal ideation, suicidal ideation Skin exam: PRESENT: dry, intact, warm. ABSENT: cyanosis, rash Results Laboratory Results: 01/30/20 10:34 01/30/20 02:25 01/30/20 01/30/20 01/30/20 02:10 02:25 02:25 WBC RBC Hgb Hct MCV MCH MCHC RDW Plt Count Carbonic Acid 0.94 L HCO3/H2CO3 Ratio 23:1 ABG pH 7.46 H ABG pCO2 31.3 L ABG pO2 52.5 L ABG HCO3 22.0 ABG O2 Saturation 89.5 L ABG Base Excess -1.4 FiO2 95% Sodium 136.8 L Potassium 4.4 Chloride 107 Carbon Dioxide 23 Anion Gap 7 BUN 43 H Creatinine 1.12 Est GFR ( Amer) > 60 Glucose 104 Lactic Acid 1.6 Calcium 7.4 L Total Bilirubin 0.7 AST 61 H Alkaline Phosphatase 54 Total Protein 4.5 L Albumin 2.2 L Blood Type Antibody Screen 01/30/20 01/30/20 01/30/20 02:59 04:12 07:29 WBC Cancelled 10.3 RBC Cancelled 2.23 L Hgb Cancelled 7.8 L D Hct Cancelled 21.8 L MCV Cancelled 98 H MCH Cancelled 34.8 H MCHC Cancelled 35.7 RDW Cancelled 13.0 Plt Count Cancelled 322 Carbonic Acid HCO3/H2CO3 Ratio ABG pH ABG pCO2 ABG pO2 ABG HCO3 ABG O2 Saturation ABG Base Excess FiO2 Sodium Potassium Chloride Carbon Dioxide Anion Gap BUN Creatinine Est GFR ( Amer) Glucose Lactic Acid Calcium Total Bilirubin AST Alkaline Phosphatase Total Protein Albumin Blood Type O POSITIVE Antibody Screen NEGATIVE 01/30/20 10:34 WBC 11.2 H RBC 2.35 L Hgb 8.1 L Hct 23.4 L MCV 100 H MCH 34.5 H MCHC 34.5 RDW 12.8 Plt Count 365 Carbonic Acid HCO3/H2CO3 Ratio ABG pH ABG pCO2 ABG pO2 ABG HCO3 ABG O2 Saturation ABG Base Excess FiO2 Sodium Potassium Chloride Carbon Dioxide Anion Gap BUN Creatinine Est GFR ( Amer) Glucose Lactic Acid Calcium Total Bilirubin AST Alkaline Phosphatase Total Protein Albumin Blood Type Antibody Screen 01/20/20 01/20/20 01/30/20 21:02 21:02 07:07 Creatine Kinase 356 H Troponin I 0.026 NT-Pro-B Natriuret Pep 1580 H 456 H Impressions: Chest X-Ray 01/30/20 00:00 IMPRESSION: Increasing bilateral airspace disease. Assessment and Plan - Diagnosis (1) COVID-19 Is this a current diagnosis for this admission?: Yes Plan: Covid positive D-dimer CRP, and LDH are elevated. Ferritin 1240-> 705-> 624 ABG revealed respiratory alkalosis with hypoxia. Provide supplemental oxygen as needed maintain saturations greater than 92%. Titrate CPAP to maintain saturations. Continue full dose Lovenox. Scheduled and as needed nebulizer treatments. Completed IV azithromycin Completed remdesivir Provided 1 unit convalescent serum Continue daily dexamethasone; have increased dose to 10 mg q12 as patient has been noted to have wheezing throughout multiple days in a row. Begin taper once improved. Zinc, vitamin D, vitamin C, and melatonin supplementation. Encourage pulmonary toilet. Isolation precautions. (2) Pneumonia Qualifiers: Pneumonia type: aspiration pneumonia Aspiration pneumonia type: due to gastric secretions Laterality: left Lung location: lower lobe of lung Qualified Code(s): J69.0 - Pneumonitis due to inhalation of food and vomit Is this a current diagnosis for this admission?: Yes Plan: Initial concern for aspiration pneumonia; subsequently found to have COVID-19. Blood cultures positive for staph hominis (1 set); determined to be a contaminant. Otherwise negative at 5 days. Sputum cultures not obtained. Completed IV Azithromycin and Rocephin Remaining management as above. (3) Acute hypoxemic respiratory failure Is this a current diagnosis for this admission?: Yes Plan: CXR shows worsening consolidations bilaterally. proBNP 456 Secondary #1. Continue daily dexamethasone; have increased dose to 10 mg q12 as patient has been noted to have wheezing throughout multiple days in a row. Remaining evaluation and management as above (4) Acute metabolic encephalopathy Is this a current diagnosis for this admission?: Yes Plan: Multifactorial secondary to Covid pneumonia and hypoxia in the setting of dementia. Discontinued Haldol r/t increased qtc interval. Supportive care. (5) History of dementia Is this a current diagnosis for this admission?: Yes Plan: Supportive care. Discharge planning consulted. (6) Sepsis Qualifiers: Sepsis type: sepsis due to unspecified organism Sepsis acute organ dysf unction status: with acute organ dysfunction Severe sepsis acute organ dy sfunction type: acute respiratory failure Acute respiratory failure type: with hypoxia Severe sepsis shock status: without septic shock Qualified Code(s): A41.9 - Sepsis, unspecified organism; R65.20 - Severe sepsis without septic shock; J96.01 - Acute respiratory failure with hypoxia Is this a current diagnosis for this admission?: Yes Plan: Resolved. Secondary to #1-2 (7) Hyponatremia Is this a current diagnosis for this admission?: Yes Plan: Resolved (8) Leukopenia Qualifiers: Leukopenia type: other Qualified Code(s): D72.818 - Other decreased white blood cell count Is this a current diagnosis for this admission?: Yes Plan: Resolved. (9) Dehydration Is this a current diagnosis for this admission?: Yes Plan: Improved; moist mucous membranes, downtrending BUN, increased urine output. Continue gentle IVF (10) Anemia Qualifiers: Anemia type: iron deficiency Is this a current diagnosis for this admission?: Yes Plan: Mild iron deficiency anemia Oral iron and multivitamin supplementation Monitor CBC (11) Prolonged Q-T interval on ECG Is this a current diagnosis for this admission?: Yes Plan: Have discontinued Aricept, Zofran, Haldol Follow up EKG (12) Hypotension Is this a current diagnosis for this admission?: Yes Plan: proBNP 456 Likely secondary to fluid volume deficit; patient has had poor p.o. intake. Improved following 3 L IV fluid boluses. Continue generous IV fluids. Holding parameters on antihypertensives. Check thyroid panel and AM cortisol - Time Time Spent with patient: 35 or more minutes Medications reviewed and adjusted accordingly: Yes Anticipated Discharge Disposition: Nursing Home Care Facility Anticipated Discharge Timeframe: >72 hrs
[2020-01-30] MEDS: NORMAL SALINE 1000 ML 1,000 ML IV PRN (15:12)
--- NOTE | 2020-01-30 17:23 | EKG REPORT ---
SEVERITY:- ABNORMAL ECG - SINUS RHYTHM ATRIAL PREMATURE COMPLEX PROBABLE INFERIOR , INFEROPOSTERIOR INFARCT, AGE INDETERMINATE : Confirmed by: Chad Ann MD 30-Jan-2020 17:22:25
[2020-01-30] MEDS: SIMVASTATIN 10 MG TABLET PO SCH (23:16)
[2020-01-30] MEDS: DEXAMETHASONE SOD PHOS INJ 10 MG/1 ML VIAL IM SCH (23:20)
[2020-01-31] MEDS: NORMAL SALINE 1000 ML 1,000 ML IV PRN ×3 (01:50→21:12)
[2020-01-31] MEDS: IPRATROPIUM/ALBUTEROL 0.5-2.5 MG/3 ML AMPUL NEB SCH ×4 (02:21→19:51)
[2020-01-31 05:44] LABS: HEMATOCRIT 19.7 % (37.9-51.0); MEAN CORPUSCULAR HEMOGLOBIN 35.3 pg (27.0-33.4); MEAN CORPUSCULAR VOLUME 98 fl (80-97); PLATELET COUNT 327 10^3/uL (150-450); RED BLOOD COUNT 2.01 10^6/uL (4.35-5.55); RED CELL DISTRIBUTION WIDTH 13.1 % (11.5-14.0); WHITE BLOOD COUNT 11.5 10^3/uL (4.0-10.5)
[2020-01-31 05:48] LABS: HEMOGLOBIN 7.1 g/dL (13.5-17.0)
[2020-01-31 06:00] LABS: ANION GAP 9 (5-19); BLOOD UREA NITROGEN 41 mg/dL (7-20); CALCIUM 8.1 mg/dL (8.4-10.2); CARBON DIOXIDE 21 mmol/L (22-30); CHLORIDE 109 mmol/L (98-107); GLUCOSE 132 mg/dL (75-110); POTASSIUM 4.4 mmol/L (3.6-5.0)
[2020-01-31] MEDS: ASPIRIN 81 MG TABLET, ENT COATED PO SCH (09:25)
[2020-01-31] MEDS: ASCORBIC ACID 500 MG TABLET PO SCH (09:25)
[2020-01-31] MEDS: DEXAMETHASONE SOD PHOS INJ 10 MG/1 ML VIAL IM SCH (09:26)
[2020-01-31] MEDS: MULTIVITAMIN TABLET PO SCH (09:26)
[2020-01-31] MEDS: VITAMIN E (DL, ACETATE) 400 UNIT CAPSULE PO SCH (09:26)
[2020-01-31] MEDS: BENAZEPRIL HCL 20 MG TABLET PO SCH (09:26)
[2020-01-31] MEDS: CYANOCOBALAMIN (VITAMIN B-12) 1,000 MCG TABLET PO SCH (09:26)
[2020-01-31] MEDS: PANTOPRAZOLE SODIUM 40 MG TABLET.DR PO SCH (09:26)
[2020-01-31] MEDS: FERROUS SULFATE 325 MG TABLET PO SCH (09:26)
[2020-01-31] MEDS: AMLODIPINE BESYLATE 5 MG TABLET PO SCH (09:26)
--- NOTE | 2020-01-31 09:34 | PDOC PROGRESS REPORT ---
Subjective Progress Note for:: 01/31/20 Subjective:: Patient is on CPAP. Saturation was low but with steady breathing his saturation was greater than 90%. He is still tachypneic and mildly tachycardic. Currently receiving 1 unit of packed red blood cells. Reason For Visit: SEPSIS, LLL PNA Physical Exam Vital Signs: Temp Pulse Resp BP Pulse Ox 98.5 F 78 18 115/56 L 94 01/31/20 08:39 01/31/20 08:39 01/31/20 08:39 01/31/20 08:39 01/31/20 08:39 Intake & Output 01/30/20 01/31/20 02/01/20 06:59 06:59 06:59 Intake Total 3351 1195 762 Output Total 950 1075 Balance 2401 120 762 Weight 113.7 kg 121.7 kg General appearance: PRESENT: cooperative - Slightly difficult to understand due to CPAP mask., mild distress, well-developed Eye exam: PRESENT: conjunctiva pale. ABSENT: scleral icterus Ear exam: PRESENT: normal external ear exam. ABSENT: bleeding, drainage Mouth exam: PRESENT: other - CPAP mask in place Respiratory exam: PRESENT: prolonged expiratory phas, symmetrical, tachypnea, wheezes - Right greater than left. ABSENT: rales, rhonchi Cardiovascular exam: PRESENT: RRR, +S1, +S2, tachycardia. ABSENT: bradycardia, diastolic murmur, irregular rhythm, systolic murmur GI/Abdominal exam: PRESENT: normal bowel sounds, soft. ABSENT: distended, guarding, tenderness Rectal exam: PRESENT: deferred Gentrourinary exam: PRESENT: indwelling catheter Extremities exam: PRESENT: other - Mild puffiness both hands Neurological exam: PRESENT: alert, awake, oriented to person, oriented to place Psychiatric exam: PRESENT: appropriate affect. ABSENT: agitated, anxious Skin exam: PRESENT: dry, pallor, warm Results Laboratory Results: 01/31/20 05:15 01/31/20 05:15 01/30/20 01/30/20 01/31/20 07:29 10:34 05:15 WBC 11.2 H 11.5 H RBC 2.35 L 2.01 L Hgb 8.1 L 7.1 L Hct 23.4 L 19.7 L MCV 100 H 98 H MCH 34.5 H 35.3 H MCHC 34.5 36.0 RDW 12.8 13.1 Plt Count 365 327 Sodium Potassium Chloride Carbon Dioxide Anion Gap BUN Creatinine Est GFR ( Amer) Glucose Calcium TSH Blood Type O POSITIVE Antibody Screen NEGATIVE 01/31/20 01/31/20 05:15 05:15 WBC RBC Hgb Hct MCV MCH MCHC RDW Plt Count Sodium 139.3 Potassium 4.4 Chloride 109 H Carbon Dioxide 21 L Anion Gap 9 BUN 41 H Creatinine 1.00 Est GFR ( Amer) > 60 Glucose 132 H Calcium 8.1 L TSH 0.23 L Blood Type Antibody Screen 01/20/20 01/20/20 01/30/20 21:02 21:02 07:07 Creatine Kinase 356 H Troponin I 0.026 NT-Pro-B Natriuret Pep 1580 H 456 H Impressions: Chest X-Ray 01/30/20 00:00 IMPRESSION: Increasing bilateral airspace disease. Assessment and Plan - Diagnosis (1) COVID-19 Is this a current diagnosis for this admission?: Yes Plan: Covid positive D-dimer CRP, and LDH are elevated. Ferritin 1240-> 705-> 624 ABG revealed respiratory alkalosis with hypoxia. Provide supplemental oxygen as needed maintain saturations greater than 92%. Titrate CPAP to maintain saturations. Continue full dose Lovenox. Scheduled and as needed nebulizer treatments. Completed IV azithromycin Completed remdesivir Provided 1 unit convalescent serum Continue daily dexamethasone; have increased dose to 10 mg q12 as patient has been noted to have wheezing throughout multiple days in a row. Begin taper once improved. Zinc, vitamin D, vitamin C, and melatonin supplementation. Encourage pulmonary toilet. Isolation precautions. (2) Pneumonia Qualifiers: Pneumonia type: aspiration pneumonia Aspiration pneumonia type: due to gastric secretions Laterality: left Lung location: lower lobe of lung Qualified Code(s): J69.0 - Pneumonitis due to inhalation of food and vomit Is this a current diagnosis for this admission?: Yes Plan: Initial concern for aspiration pneumonia; subsequently found to have COVID-19. Blood cultures positive for staph hominis (1 set); determined to be a contaminant. Otherwise negative at 5 days. Sputum cultures not obtained. Completed IV Azithromycin and Rocephin Remaining management as above. (3) Acute hypoxemic respiratory failure Is this a current diagnosis for this admission?: Yes Plan: CXR shows worsening consolidations bilaterally. proBNP 456 Secondary #1. Continue daily dexamethasone; have increased dose to 10 mg q12 as patient has been noted to have wheezing throughout multiple days in a row. Remaining evaluation and management as above (4) Acute metabolic encephalopathy Is this a current diagnosis for this admission?: Yes Plan: Multifactorial secondary to Covid pneumonia and hypoxia in the setting of dementia. Discontinued Haldol r/t increased qtc interval. Supportive care. (5) Dementia Qualifiers: Dementia type: unspecified type Dementia behavioral disturbance: without behavioral disturbance Qualified Code(s): F03.90 - Unspecified dementia without behavioral disturbance Is this a current diagnosis for this admission?: Yes Plan: Supportive care (6) Hyponatremia Is this a current diagnosis for this admission?: Yes Plan: Resolved (7) Sepsis Qualifiers: Sepsis type: sepsis due to unspecified organism Sepsis acute organ dysfunction status: with acute organ dysfunction Severe sepsis acute organ dysfunction type: acute respiratory failure Acute respiratory failure type: with hypoxia Severe sepsis shock status: without septic shock Qualified Code(s): A41.9 - Sepsis, unspecified organism; R65.20 - Severe sepsis without septic shock; J96.01 - Acute respiratory failure with hypoxia Is this a current diagnosis for this admission?: Yes Plan: Resolved. Secondary to #1-2 (8) Anemia Qualifiers: Anemia type: iron deficiency Is this a current diagnosis for this admission?: Yes Plan: Mild iron deficiency anemia Oral iron and multivitamin supplementation Monitor CBC (9) Dehydration Is this a current diagnosis for this admission?: Yes Plan: Improved; moist mucous membranes, downtrending BUN, increased urine output. Continue gentle IVF (10) Leukopenia Qualifiers: Leukopenia type: other Qualified Code(s): D72.818 - Other decreased white blood cell count Is this a current diagnosis for this admission?: Yes Plan: Resolved. (11) Hypotension Is this a current diagnosis for this admission?: Yes Plan: proBNP 456 Likely secondary to fluid volume deficit; patient has had poor p.o. intake. Improved following 3 L IV fluid boluses. Continue generous IV fluids. Holding parameters on antihypertensives. Check thyroid panel and AM cortisol (12) Prolonged Q-T interval on ECG Is this a current diagnosis for this admission?: Yes Plan: Have discontinued Aricept, Zofran, Haldol Follow up EKG - Plan Summary Summary: 01/31/2020 COVID-19 pneumonia with respiratory failure-patient was still wheezy. Steroids changed to intravenous. We will try and taper the dexamethasone dose as soon as possible. Still heavily dependent on BiPAP and oxygen. Continue current regimen with increased steroid dosing and monitor closely. Sepsis with hypotension and dehydration resolved Intermittent EKGs to monitor QT interval - Time Time Spent with patient: 15-24 minutes Medications reviewed and adjusted accordingly: Yes Anticipated Discharge Disposition: Unknown Anticipated Discharge Timeframe: Unknown
[2020-01-31] MEDS: SIMVASTATIN 10 MG TABLET PO SCH (21:11)
[2020-01-31] MEDS: DEXAMETHASONE SOD PHOS INJ 10 MG/1 ML VIAL IV SCH (21:11)
[2020-01-31] MEDS: HALOPERIDOL LACTATE INJ 5 MG/1 ML VIAL IV PRN (21:11)
[2020-02-01] MEDS: HALOPERIDOL LACTATE INJ 5 MG/1 ML VIAL IV PRN ×2 (01:20→23:13)
[2020-02-01] MEDS: IPRATROPIUM/ALBUTEROL 0.5-2.5 MG/3 ML AMPUL NEB SCH ×4 (02:10→19:53)
[2020-02-01 05:47] LABS: HEMATOCRIT 21.3 % (37.9-51.0); MEAN CORPUSCULAR HEMOGLOBIN 35.5 pg (27.0-33.4); MEAN CORPUSCULAR VOLUME 99 fl (80-97); PLATELET COUNT 322 10^3/uL (150-450); RED BLOOD COUNT 2.16 10^6/uL (4.35-5.55); RED CELL DISTRIBUTION WIDTH 14.5 % (11.5-14.0); WHITE BLOOD COUNT 11.2 10^3/uL (4.0-10.5)
[2020-02-01 05:50] LABS: HEMOGLOBIN 7.7 g/dL (13.5-17.0)
[2020-02-01] MEDS: NORMAL SALINE 1000 ML 1,000 ML IV PRN ×2 (06:10→20:13)
[2020-02-01] MEDS: ASCORBIC ACID 500 MG TABLET PO SCH (09:24)
[2020-02-01] MEDS: DEXAMETHASONE SOD PHOS INJ 10 MG/1 ML VIAL IV SCH ×2 (09:24→22:41)
[2020-02-01] MEDS: MULTIVITAMIN TABLET PO SCH (09:24)
[2020-02-01] MEDS: PANTOPRAZOLE SODIUM 40 MG TABLET.DR PO SCH (09:24)
[2020-02-01] MEDS: FERROUS SULFATE 325 MG TABLET PO SCH (09:25)
[2020-02-01] MEDS: VITAMIN E (DL, ACETATE) 400 UNIT CAPSULE PO SCH (09:25)
[2020-02-01] MEDS: ASPIRIN 81 MG TABLET, ENT COATED PO SCH (09:25)
[2020-02-01] MEDS: AMLODIPINE BESYLATE 5 MG TABLET PO SCH (09:25)
[2020-02-01] MEDS: BENAZEPRIL HCL 20 MG TABLET PO SCH (09:25)
[2020-02-01] MEDS: CYANOCOBALAMIN (VITAMIN B-12) 1,000 MCG TABLET PO SCH (09:25)
--- NOTE | 2020-02-01 16:23 | PDOC PROGRESS REPORT ---
Subjective Progress Note for:: 02/01/20 Subjective:: Patient is down to high flow nasal cannula. Nursing reports that he is experiencing delirium. Considering his underlying dementia, increased steroid dose and his acute illness this is not terribly surprising. Reason For Visit: SEPSIS, LLL PNA Physical Exam Vital Signs: Temp Pulse Resp BP Pulse Ox 98.1 F 51 L 23 H 140/86 H 88 L 02/01/20 15:43 02/01/20 15:43 02/01/20 15:43 02/01/20 15:43 02/01/20 15:43 Intake & Output 01/31/20 02/01/20 02/02/20 06:59 06:59 06:59 Intake Total 1195 3259 Output Total 1075 600 Balance 120 2659 Weight 121.7 kg 122.4 kg 122.4 kg General appearance: PRESENT: mild distress, well-developed. ABSENT: cooperative - Unable to cooperate due to mental state Head exam: PRESENT: atraumatic, normocephalic Eye exam: PRESENT: conjunctiva pale Ear exam: PRESENT: normal external ear exam, other - High flow nasal cannula. ABSENT: bleeding, drainage Mouth exam: PRESENT: moist, tongue midline Respiratory exam: PRESENT: prolonged expiratory phas, symmetrical, tachypnea, wheezes - Bilateral expiratory wheezes. ABSENT: rales, rhonchi Cardiovascular exam: PRESENT: RRR, +S1, +S2. ABSENT: bradycardia, diastolic murmur, irregular rhythm, systolic murmur, tachycardia GI/Abdominal exam: PRESENT: soft, other - Protuberant abdomen. ABSENT: guarding, tenderness Rectal exam: PRESENT: deferred Gentrourinary exam: PRESENT: indwelling catheter Extremities exam: ABSENT: pedal edema Neurological exam: PRESENT: alert, altered - Seeing bugs on the wall as well as things crawling on the nurse, awake, oriented to person. ABSENT: oriented to place, oriented to situation Psychiatric exam: PRESENT: unusual affect. ABSENT: agitated, anxious Focused psych exam: PRESENT: other - Delirium. ABSENT: paranoid, restlessness Skin exam: PRESENT: dry, pallor, warm Results Laboratory Results: 02/01/20 05:16 01/31/20 05:15 01/31/20 02/01/20 18:54 05:16 WBC Cancelled 11.2 H RBC Cancelled 2.16 L Hgb Cancelled 7.7 L Hct Cancelled 21.3 L MCV Cancelled 99 H MCH Cancelled 35.5 H MCHC Cancelled 36.0 RDW Cancelled 14.5 H Plt Count Cancelled 322 Seg Neutrophils % Cancelled 01/20/20 01/20/20 01/30/20 21:02 21:02 07:07 Creatine Kinase 356 H Troponin I 0.026 NT-Pro-B Natriuret Pep 1580 H 456 H Impressions: Chest X-Ray 01/30/20 00:00 IMPRESSION: Increasing bilateral airspace disease. Assessment and Plan - Diagnosis (1) COVID-19 Is this a current diagnosis for this admission?: Yes (2) Pneumonia Qualifiers: Pneumonia type: aspiration pneumonia Aspiration pneumonia type: due to gastric secretions Laterality: left Lung location: lower lobe of lung Qualified Code(s): J69.0 - Pneumonitis due to inhalation of food and vomit Is this a current diagnosis for this admission?: Yes (3) Acute hypoxemic respiratory failure Is this a current diagnosis for this admission?: Yes (4) Acute metabolic encephalopathy Is this a current diagnosis for this admission?: Yes (5) Dementia Qualifiers: Dementia type: unspecified type Dementia behavioral disturbance: without behavioral disturbance Qualified Code(s): F03.90 - Unspecified dementia with out behavioral disturbance Is this a current diagnosis for this admission?: Yes (6) Hyponatremia Is this a current diagnosis for this admission?: Yes (7) Sepsis Qualifiers: Sepsis type: sepsis due to unspecified organism Sepsis acute organ dysfunction status: with acute organ dysfunction Severe sepsis acute organ dysfunction type: acute respiratory failure Acute respiratory failure type: with hypoxia Severe sepsis shock status: without septic shock Qualified Code(s): A41.9 - Sepsis, unspecified organism; R65.20 - Severe sepsis without septic shock; J96.01 - Acute respiratory failure with hypoxia Is this a current diagnosis for this admission?: Yes (8) Anemia Qualifiers: Anemia type: iron deficiency Is this a current diagnosis for this admission?: Yes (9) Dehydration Is this a current diagnosis for this admission?: Yes (10) Leukopenia Qualifiers: Leukopenia type: other Qualified Code(s): D72.818 - Other decreased white blood cell count Is this a current diagnosis for this admission?: Yes (11) Hypotension Is this a current diagnosis for this admission?: Yes (12) Prolonged Q-T interval on ECG Is this a current diagnosis for this admission?: Yes - Plan Summary Summary: 01/31/2020 COVID-19 pneumonia with respiratory failure-patient was still wheezy. Steroids changed to intravenous. We will try and taper the dexamethasone dose as soon as possible. Still heavily dependent on BiPAP and oxygen. Continue current regimen with increased steroid dosing and monitor closely. Sepsis with hypotension and dehydration resolved Intermittent EKGs to monitor QT interval 02/01/2020 COVID-19 pneumonia with respiratory failure-despite increased steroid dosing the patient is still wheezing. His delirium could be the result of the increase steroid dose but is likely multifactorial including his acute illness and history of dementia. I will decrease the Decadron to 8 mg twice daily and monitor closely. Respiratory failure-he is on high flow nasal cannula. He has been mostly above 90% however he will occasionally drop into the 80s. BiPAP is available if needed. Hypertension-blood pressures slightly higher than desired. Will increase amlodipine to 10 mg daily and monitor. Anemia-hemoglobin is improved slightly. It is 7.7 at the latest check. We will continue to monitor. - Time Time Spent with patient: 15-24 minutes Medications reviewed and adjusted accordingly: Yes Anticipated Discharge Disposition: Possibly [facility] facility versus home with home health Anticipated Discharge Timeframe: Unknown
[2020-02-01] MEDS: SIMVASTATIN 10 MG TABLET PO SCH (22:41)
[2020-02-02] MEDS: IPRATROPIUM/ALBUTEROL 0.5-2.5 MG/3 ML AMPUL NEB SCH ×4 (02:11→20:26)
[2020-02-02] MEDS: HALOPERIDOL LACTATE INJ 5 MG/1 ML VIAL IV PRN ×4 (03:15→20:46)
[2020-02-02 05:21] LABS: HEMATOCRIT 22.4 % (37.9-51.0); MEAN CORPUSCULAR HEMOGLOBIN 35.1 pg (27.0-33.4); MEAN CORPUSCULAR HGB CONC 35.7 g/dL (32.0-36.0); MEAN CORPUSCULAR VOLUME 98 fl (80-97); PLATELET COUNT 343 10^3/uL (150-450); RED BLOOD COUNT 2.28 10^6/uL (4.35-5.55); RED CELL DISTRIBUTION WIDTH 14.5 % (11.5-14.0); WHITE BLOOD COUNT 12.2 10^3/uL (4.0-10.5)
[2020-02-02 05:41] LABS: ALBUMIN 2.7 g/dL (3.5-5.0); ALKALINE PHOSPHATASE 104 U/L (38-126); ANION GAP 8 (5-19); ASPARTATE AMINO TRANSFERASE 92 U/L (17-59); BILIRUBIN,DIRECT 0.2 mg/dL (0.0-0.4); BILIRUBIN,TOTAL 0.7 mg/dL (0.2-1.3); BLOOD UREA NITROGEN 37 mg/dL (7-20); C-REACTIVE PROTEIN 59.5 mg/L (<10.0); CALCIUM 8.2 mg/dL (8.4-10.2); CARBON DIOXIDE 21 mmol/L (22-30); CHLORIDE 111 mmol/L (98-107); GLUCOSE 108 mg/dL (75-110); POTASSIUM 4.5 mmol/L (3.6-5.0); TOTAL PROTEIN 5.6 g/dL (6.3-8.2)
[2020-02-02 05:57] LABS: ABSOLUTE LYMPHOCYTES# (MANUAL) 0.4 10^3/uL (0.5-4.7); ABSOLUTE MONOCYTES # (MANUAL) 0.5 10^3/uL (0.1-1.4); BASOPHILS % (MANUAL) 0 % (0-2); EOSINOPHILS % (MANUAL) 0 % (0-6); LYMPHOCYTES % (MANUAL) 3 % (13-45); MONOCYTES % (MANUAL) 4 % (3-13); POLYCHROMASIA SLIGHT; SEGMENTED NEUTROPHILS % (MAN) 93 % (42-78); TOTAL CELLS COUNTED 100; TOXIC GRANULATION SLIGHT; TOXIC VACUOLATION PRESENT
[2020-02-02 05:58] LABS: ANISOCYTOSIS SLIGHT; BURR CELLS SLIGHT; PLATELET COMMENT ADEQUATE; SCHISTOCYTES SLIGHT
[2020-02-02] MEDS: NORMAL SALINE 1000 ML 1,000 ML IV PRN ×3 (06:48→22:13)
[2020-02-02] MEDS ORDERED: INFLUENZA QUAD (6MOS+) 2020-21 VAC 0.5 ML SYR IM ONE (08:00)
[2020-02-02] MEDS: CYANOCOBALAMIN (VITAMIN B-12) 1,000 MCG TABLET PO SCH (10:03)
[2020-02-02] MEDS: ASCORBIC ACID 500 MG TABLET PO SCH (10:03)
[2020-02-02] MEDS: PANTOPRAZOLE SODIUM 40 MG TABLET.DR PO SCH (10:03)
[2020-02-02] MEDS: AMLODIPINE BESYLATE 10 MG TABLET PO SCH (10:03)
[2020-02-02] MEDS: FERROUS SULFATE 325 MG TABLET PO SCH (10:03)
[2020-02-02] MEDS: ASPIRIN 81 MG TABLET, ENT COATED PO SCH (10:03)
[2020-02-02] MEDS: BENAZEPRIL HCL 20 MG TABLET PO SCH (10:03)
[2020-02-02] MEDS: VITAMIN E (DL, ACETATE) 400 UNIT CAPSULE PO SCH (10:03)
[2020-02-02] MEDS: MULTIVITAMIN TABLET PO SCH (10:03)
[2020-02-02] MEDS: DEXAMETHASONE SOD PHOS INJ 10 MG/1 ML VIAL IV SCH ×2 (10:19→21:27)
--- NOTE | 2020-02-02 18:16 | PDOC PROGRESS REPORT ---
Subjective Progress Note for:: 02/02/20 Subjective:: Patient remains on CPAP at 6 with respiratory rate of 19-20. FiO2 is 100% to maintain saturation greater than 90. Reason For Visit: SEPSIS, LLL PNA Physical Exam Vital Signs: Temp Pulse Resp BP Pulse Ox 97.7 F 123 H 22 H 115/98 H 95 02/02/20 11:15 02/02/20 14:20 02/02/20 16:00 02/02/20 11:15 02/02/20 14:20 Intake & Output 02/01/20 02/02/20 02/03/20 06:59 06:59 06:59 Intake Total 3259 2100 938 Output Total 600 700 Balance 2659 1400 938 Weight 122.4 kg 123.5 kg General appearance: PRESENT: mild distress Respiratory exam: PRESENT: symmetrical, tachypnea - Mild. ABSENT: rales, rhonchi, wheezes - No expiratory wheezes noted today Cardiovascular exam: PRESENT: RRR, +S1, +S2 GI/Abdominal exam: PRESENT: soft. ABSENT: tenderness Results Laboratory Results: 02/02/20 04:30 02/02/20 04:30 02/02/20 02/02/20 04:30 04:30 WBC 12.2 H RBC 2.28 L Hgb 8.0 L Hct 22.4 L MCV 98 H MCH 35.1 H MCHC 35.7 RDW 14.5 H Plt Count 343 Seg Neutrophils % Not Reportable Sodium 140.3 Potassium 4.5 Chloride 111 H Carbon Dioxide 21 L Anion Gap 8 BUN 37 H Creatinine 0.92 Est GFR ( Amer) > 60 Glucose 108 Calcium 8.2 L Total Bilirubin 0.7 AST 92 H Alkaline Phosphatase 104 C-Reactive Protein 59.5 H Total Protein 5.6 L Albumin 2.7 L 01/20/20 01/20/20 01/30/20 21:02 21:02 07:07 Creatine Kinase 356 H Troponin I 0.026 NT-Pro-B Natriuret Pep 1580 H 456 H Impressions: Chest X-Ray 01/30/20 00:00 IMPRESSION: Increasing bilateral airspace disease. Assessment and Plan - Diagnosis (1) COVID-19 Is this a current diagnosis for this admission?: Yes (2) Pneumonia Qualifiers: Pneumonia type: aspiration pneumonia Aspiration pneumonia type: due to gastric secretions Laterality: left Lung location: lower lobe of lung Qualified Code(s): J69.0 - Pneumonitis due to inhalation of food and vomit Is this a current diagnosis for this admission?: Yes (3) Acute hypoxemic respiratory failure Is this a current diagnosis for this admission?: Yes (4) Acute metabolic encephalopathy Is this a current diagnosis for this admission?: Yes (5) Dementia Qualifiers: Dementia type: unspecified type Dementia behavioral disturbance: without behavioral disturbance Qualified Code(s): F03.90 - Unspecified dementia without behavioral disturbance Is this a current diagnosis for this admission?: Yes (6) Hyponatremia Is this a current diagnosis for this admission?: Yes (7) Sepsis Qualifiers: Sepsis type: sepsis due to unspecified organism Sepsis acute organ dy sfunction status: with acute organ dysfunction Severe sepsis acute organ dysfunction type: acute respiratory failure Acute respiratory failure type: with hypoxia Severe sepsis shock status: without septic shock Qualified Code(s): A41.9 - Sepsis, unspecified organism; R65.20 - Severe sepsis without septic shock; J96.01 - Acute respiratory failure with hypoxia Is this a current diagnosis for this admission?: Yes (8) Anemia Qualifiers: Anemia type: iron deficiency Is this a current diagnosis for this admission?: Yes (9) Dehydration Is this a current diagnosis for this admission?: Yes (10) Leukopenia Qualifiers: Leukopenia type: other Qualified Code(s): D72.818 - Other decreased white blood cell count Is this a current diagnosis for this admission?: Yes (11) Hypotension Is this a current diagnosis for this admission?: Yes (12) Prolonged Q-T interval on ECG Is this a current diagnosis for this admission?: Yes - Plan Summary Summary: 01/31/2020 COVID-19 pneumonia with respiratory failure-patient was still wheezy. Steroids changed to intravenous. We will try and taper the dexamethasone dose as soon as possible. Still heavily dependent on BiPAP and oxygen. Continue current regimen with increased steroid dosing and monitor closely. Sepsis with hypotension and dehydration resolved Intermittent EKGs to monitor QT interval 02/01/2020 COVID-19 pneumonia with respiratory failure-despite increased steroid dosing the patient is still wheezing. His delirium could be the result of the increase vianey roid dose but is likely multifactorial including his acute illness and history of dementia. I will decrease the Decadron to 8 mg twice daily and monitor closely. Respiratory failure-he is on high flow nasal cannula. He has been mostly above 90% however he will occasionally drop into the 80s. BiPAP is available if needed. Hypertension-blood pressures slightly higher than desired. Will increase amlodipine to 10 mg daily and monitor. Anemia-hemoglobin is improved slightly. It is 7.7 at the latest check. We will continue to monitor. 02/02/2020 Patient still requires significant support to maintain oxygen saturations greater than 90%. He is currently on CPAP with a pressure of 6 and FiO2 100%. I will increase the pressure to 10 and try and wean the FiO2. His pulse ox does occasionally drop below 80 him we will continue to monitor closely. The Decadron was reduced to 8 mg yesterday. Fortunately today I did not detect any wheezing. We will continue to decrease the Decadron. Hemoglobin is 8.0 today up from 7.7. He may benefit from another unit of packed red blood cells to help oxygenation. We will need to balance this against the net fluid status. I will check his hemoglobin tomorrow and reassess. - Time Time Spent with patient: 15-24 minutes Medications reviewed and adjusted accordingly: Yes Anticipated Discharge Disposition: Unable to determine at this time Anticipated Discharge Timeframe: Unable to determine at this time
[2020-02-02] MEDS: SIMVASTATIN 10 MG TABLET PO SCH (21:27)
[2020-02-02] MEDS ORDERED: METOPROLOL TARTRATE PF/INJ 5 MG/5 ML SDV IV ONE (22:31)
[2020-02-02] MEDS: METOPROLOL TARTRATE PF/INJ 5 MG/5 ML SDV IV PRN (22:40)
[2020-02-02] MEDS ORDERED: LORAZEPAM INJ 2 MG/1 ML VIAL IV PRN (22:42)
[2020-02-03] MEDS: HALOPERIDOL LACTATE INJ 5 MG/1 ML VIAL IV PRN (01:31)
[2020-02-03] MEDS: IPRATROPIUM/ALBUTEROL 0.5-2.5 MG/3 ML AMPUL NEB SCH ×3 (01:54→14:35)
[2020-02-03] MEDS: METOPROLOL TARTRATE PF/INJ 5 MG/5 ML SDV IV PRN (02:40)
[2020-02-03 05:41] LABS: HEMATOCRIT 23.6 % (37.9-51.0); HEMOGLOBIN 8.4 g/dL (13.5-17.0); MEAN CORPUSCULAR HEMOGLOBIN 35.9 pg (27.0-33.4); MEAN CORPUSCULAR HGB CONC 35.4 g/dL (32.0-36.0); MEAN CORPUSCULAR VOLUME 101 fl (80-97); PLATELET COUNT 302 10^3/uL (150-450); RED BLOOD COUNT 2.33 10^6/uL (4.35-5.55); RED CELL DISTRIBUTION WIDTH 14.2 % (11.5-14.0); WHITE BLOOD COUNT 11.8 10^3/uL (4.0-10.5)
[2020-02-03] MEDS ORDERED: FUROSEMIDE INJ/PF 20 MG/2 ML SDV ONE (08:33)
[2020-02-03] MEDS ORDERED: FUROSEMIDE INJ/PF 20 MG/2 ML SDV IV ONE (08:45)
[2020-02-03] MEDS ORDERED: NORMAL SALINE 250 ML IV PRN ×2 (09:06)
[2020-02-03] MEDS ORDERED: MORPHINE SULFATE 10 MG/ML INJ IV PRN ×3 (09:47→17:04)
[2020-02-03] MEDS ORDERED: MORPHINE SULFATE 10 MG/ML INJ ONE (09:48)
[2020-02-03] MEDS: NORMAL SALINE 1000 ML 1,000 ML IV PRN (09:58)
[2020-02-03] MEDS ORDERED: DEXAMETHASONE SOD PHOS INJ 10 MG/1 ML VIAL IV SCH (10:00)
--- NOTE | 2020-02-03 10:17 | PDOC PROGRESS REPORT ---
Subjective Progress Note for:: 02/03/20 Subjective:: The patient has not been doing well this morning. It is getting harder to keep his saturations above 90%. He remains on FiO2 of 100% despite increasing the CPAP pressure from 6-10. He is tachypneic and tachycardic as well. Reason For Visit: SEPSIS, LLL PNA Physical Exam Vital Signs: Temp Pulse Resp BP Pulse Ox 97.8 F 100 26 H 106/49 L 84 L 02/03/20 07:51 02/03/20 07:51 02/03/20 07:51 02/03/20 07:51 02/03/20 07:51 Intake & Output 02/02/20 02/03/20 02/04/20 06:59 06:59 06:59 Intake Total 2100 1541 1000 Output Total 700 1375 Balance 0879 030 1304 Weight 123.5 kg 123.2 kg General appearance: PRESENT: severe distress, well-developed, other - On BiPAP and unable to communicate. Responsive to painful stimulus. Head exam: PRESENT: atraumatic, normocephalic Respiratory exam: PRESENT: accessory muscle use, prolonged expiratory phas, rales - Left base, symmetrical, tachypnea, other - Significantly increased work of breathing. ABSENT: rhonchi, wheezes Cardiovascular exam: PRESENT: +S1, +S2, tachycardia. ABSENT: bradycardia, diastolic murmur, irregular rhythm, systolic murmur GI/Abdominal exam: PRESENT: diminished bowel sounds, soft, other - Paradoxical breathing. ABSENT: tenderness Rectal exam: PRESENT: deferred Gentrourinary exam: PRESENT: indwelling catheter Musculoskeletal exam: ABSENT: ambulatory Neurological exam: ABSENT: alert, awake Psychiatric exam: PRESENT: other - Grumous on his face reflecting his current clinical status Results Laboratory Results: 02/03/20 05:04 02/02/20 04:30 02/03/20 05:04 WBC 11.8 H RBC 2.33 L Hgb 8.4 L Hct 23.6 L MCV 101 H MCH 35.9 H MCHC 35.4 RDW 14.2 H Plt Count 302 01/20/20 01/20/20 01/30/20 21:02 21:02 07:07 Creatine Kinase 356 H Troponin I 0.026 NT-Pro-B Natriuret Pep 1580 H 456 H Impressions: Chest X-Ray 01/30/20 00:00 IMPRESSION: Increasing bilateral airspace disease. Assessment and Plan - Diagnosis (1) COVID-19 Is this a current diagnosis for this admission?: Yes (2) Pneumonia Qualifiers: Pneumonia type: aspiration pneumonia Aspiration pneumonia type: due to gastric secretions Laterality: left Lung location: lower lobe of lung [place] lified Code(s): J69.0 - Pneumonitis due to inhalation of food and vomit Is this a current diagnosis for this admission?: Yes (3) Acute hypoxemic respiratory failure Is this a current diagnosis for this admission?: Yes (4) Acute metabolic encephalopathy Is this a current diagnosis for this admission?: Yes (5) Dementia Qualifiers: Dementia type: unspecified type Dementia behavioral disturbance: without behavioral disturbance Qualified Code(s): F03.90 - Unspecified dementia without behavioral disturbance Is this a current diagnosis for this admission?: Yes (6) Hyponatremia Is this a current diagnosis for this admission?: Yes (7) Sepsis Qualifiers: Sepsis type: sepsis due to unspecified organism Sepsis acute organ dysfunction status: with acute organ dysfunction Severe sepsis acute organ dysfunction type: acute respiratory failure Acute respiratory failure type: with hypoxia Severe sepsis shock status: without septic shock Qualified Code(s): A41.9 - Sepsis, unspecified organism; R65.20 - Severe sepsis without septic shock; J96.01 - Acute respiratory failure with hypoxia Is this a current diagnosis for this admission?: Yes (8) Anemia Qualifiers: Anemia type: iron deficiency Is this a current diagnosis for this admission?: Yes (9) Dehydration Is this a current diagnosis for this admission?: Yes (10) Leukopenia Qualifiers: Leukopenia type: other Qualified Code(s): D72.818 - Other decreased white blood cell count Is this a current diagnosis for this admission?: Yes (11) Hypotension Is this a current diagnosis for this admission?: Yes (12) Prolonged Q-T interval on ECG Is this a current diagnosis for this admission?: Yes - Plan Summary Summary: 01/31/2020 COVID-19 pneumonia with respiratory failure-patient was still wheezy. Steroids changed to intravenous. We will try and taper the dexamethasone dose as soon as possible. Still heavily dependent on BiPAP and oxygen. Continue current regimen with increased steroid dosing and monitor closely. Sepsis with hypotension and dehydration resolved Intermittent EKGs to monitor QT interval 02/01/2020 COVID-19 pneumonia with respiratory failure-despite increased steroid dosing the patient is still wheezing. His delirium could be the result of the increase steroid dose but is likely multifactorial including his acute illness and history of dementia. I will decrease the Decadron to 8 mg twice daily and monitor closely. Respiratory failure-he is on high flow nasal cannula. He has been mostly above 90% however he will occasionally drop into the 80s. BiPAP is available if neede d. Hypertension-blood pressures slightly higher than desired. Will increase amlodipine to 10 mg daily and monitor. Anemia-hemoglobin is improved slightly. It is 7.7 at the latest check. We will continue to monitor. 02/02/2020 Patient still requires significant support to maintain oxygen saturations greater than 90%. He is currently on CPAP with a pressure of 6 and FiO2 100%. I will increase the pressure to 10 and try and wean the FiO2. His pulse ox does occasionally drop below 80 him we will continue to monitor closely. The Decadron was reduced to 8 mg yesterday. Fortunately today I did not detect any wheezing. We will continue to decrease the Decadron. Hemoglobin is 8.0 today up from 7.7. He may benefit from another unit of packed red blood cells to help oxygenation. We will need to balance this against the net fluid status. I will check his hemoglobin tomorrow and reassess. 04/04/2020 The patient is exhibiting significantly increasing work of breathing. Despite increasing the CPAP pressure to 10 he remains with an FiO2 of 100%. Despite this his oxygen saturations have remained in the 80s. His hemoglobin is up to 8.2 with a hematocrit of 23.9. I had a long discussion with the patient's . With the patient's current condition and explained that the BiPAP is very close to intubation and it is not working therefore I did not feel that intubation would be any better. In fact intubating a patient is traumatic and would be more uncomfortable. I explained that we would try and give Lasix, morphine and a unit of packed red blood cells. She stated clearly that she did not want him to suffer. In fact she reported that her mother, who of cancer, had a window of clarity but then the next day. Interestingly she states that she did talk to her last night however he never got off of the CPAP and so I do not see how that is possible. I told her that I would call her back. I did briefly describe comfort measures. Based on his response to each intervention I can further gauge his viability however his prognosis is grave at this time. I did change his status to DO NOT INTUBATE based on my discussion with the patient's . I did look for the living will that she states she brought in but have not been able to find it as yet. - Time Time Spent with patient: 25-34 minutes Medications reviewed and adjusted accordingly: Yes Anticipated Discharge Disposition: Unknown Anticipated Discharge Timeframe: Unknown
--- NOTE | 2020-02-03 10:39 | ADVANCED CARE ---
- Diagnosis (1) COVID-19 Diagnosis Current: Yes (2) Pneumonia Diagnosis Current: Yes (3) Acute hypoxemic respiratory failure Diagnosis Current: Yes (4) Acute metabolic encephalopathy Diagnosis Current: Yes (5) Dementia Diagnosis Current: Yes (6) Hyponatremia Diagnosis Current: Yes (7) Sepsis Diagnosis Current: Yes (8) Anemia Diagnosis Current: Yes (9) Dehydration Diagnosis Current: Yes (10) Leukopenia Diagnosis Current: Yes (11) Hypotension Diagnosis Current: Yes (12) Prolonged Q-T interval on ECG Diagnosis Current: Yes Attendance: The patient's informed me that she has tested Covid positive as well as her grandchildren as they all live together. The discussion was held over the phone, over the course of 4-5 Kirstin, as she is unable to be at the bedside. Resuscitation Status: Do Not Resuscitate Discussion: The patient's states that she brought a copy of her 's living will to the hospital. I searched in the computer and through the paper chart and could not find it. The CODE STATUS evidently was changed to full code subsequent to the patient's admission. I explained in great detail the 's current clinical state, our current interventions as well as the planned interventions. I explained that he is declining. She states that she talk to him last night but he has not been off of BiPAP for days. I discussed the CODE STATUS and she was definitely clear that if he were to decline even further she would not want him intubated nor given chest compressions. At that point the goal would be to make him comfortable. And attempting to get permiss ion for her to go to the bedside as I feel his prognosis is grave. I did change his CODE STATUS to DO NOT RESUSCITATE. Time Spent: 25 min
[2020-02-03] MEDS: ASPIRIN 81 MG TABLET, ENT COATED PO SCH (12:02)
[2020-02-03] MEDS: BENAZEPRIL HCL 20 MG TABLET PO SCH (12:04)
[2020-02-03] MEDS: AMLODIPINE BESYLATE 10 MG TABLET PO SCH (12:04)
[2020-02-03] MEDS: FERROUS SULFATE 325 MG TABLET PO SCH (12:04)
[2020-02-03] MEDS: PANTOPRAZOLE SODIUM 40 MG TABLET.DR PO SCH (12:05)
[2020-02-03] MEDS: CYANOCOBALAMIN (VITAMIN B-12) 1,000 MCG TABLET PO SCH (12:05)
[2020-02-03] MEDS: MULTIVITAMIN TABLET PO SCH (12:05)
[2020-02-03] MEDS: VITAMIN E (DL, ACETATE) 400 UNIT CAPSULE PO SCH (12:05)
[2020-02-03] MEDS: ASCORBIC ACID 500 MG TABLET PO SCH (12:05)
[2020-02-03 15:29] VITALS: BP 118/55
[2020-02-03] MEDS ORDERED: LORAZEPAM INJ 2 MG/1 ML VIAL IV PRN ×2 (17:04→18:16)
--- NOTE | 2020-02-03 17:13 | Progress Note ---
Provider Note Provider Note: The patient finished the transfusion, received morphine as well as furosemide. Unfortunately the oxygen saturation continues to decrease. As per my discussion at the bedside with Mrs. Peterson, all reasonable means of treatment have been exhausted. The patient is clearly struggling. I am going to initiate comfort measures at this time.
[2020-02-03] MEDS ORDERED: HYDROMORPHONE HCL INJ/PF 2 MG/ML AMPULE IV PRN ×2 (18:13)
[2020-02-03] MEDS ORDERED: HYDROMORPHONE HCL INJ/PF 2 MG/ML AMPULE ONE ×3 (18:13→18:56)
[2020-02-03] MEDS ORDERED: LORAZEPAM INJ 2 MG/1 ML VIAL ONE (18:25)
[2020-02-03] MEDS ORDERED: HYDROMORPHONE HCL INJ/PF 2 MG/ML AMPULE IV ONE (18:55)
--- NOTE | 2020-02-03 19:28 | Death Summary ---
Summary Date : 02/03/20 Time of :: 18:56 Autopsy: No Resuscitation Status: Comfort Measures Only - Final Diagnosis (1) COVID-19 Is this a current diagnosis for this admission?: Yes (2) Pneumonia Is this a current diagnosis for this admission?: Yes (3) Acute hypoxemic respiratory failure Is this a current diagnosis for this admission?: Yes (4) Acute metabolic encephalopathy Is this a current diagnosis for this admission?: Yes (5) Dementia Is this a current diagnosis for this admission?: Yes (6) Hyponatremia Is this a current diagnosis for this admission?: Yes (7) Sepsis Is this a current diagnosis for this admission?: Yes (8) Anemia Is this a current diagnosis for this admission?: Yes (9) Dehydration Is this a current diagnosis for this admission?: Yes (10) Leukopenia Is this a current diagnosis for this admission?: Yes (11) Hypotension Is this a current diagnosis for this admission?: Yes (12) Prolonged Q-T interval on ECG Is this a current diagnosis for this admission?: Yes Hospital Course:: (1) COVID-19 Is this a current diagnosis for this admission?: Yes (2) Pneumonia Qualifiers: Pneumonia type: aspiration pneumonia Aspiration pneumonia type: due to gastric secretions Laterality: left Lung location: lower lobe of lung Qualified Code(s): J69.0 - Pneumonitis due to inhalation of food and vomit Is this a current diagnosis for this admission?: Yes (3) Acute hypoxemic respiratory failure Is this a current diagnosis for this admission?: Yes (4) Acute metabolic encephalopathy Is this a current diagnosis for this admission?: Yes (5) Dementia Qualifiers: Dementia type: unspecified type Dementia behavioral disturbance: without behavioral disturbance Qualified Code(s): F03.90 - Unspecified dementia without behavioral disturbance Is this a current diagnosis for this admission?: Yes (6) Hyponatremia Is this a current diagnosis for this admission?: Yes (7) Sepsis Qualifiers: Sepsis type: sepsis due to unspecified organism Sepsis acute organ dysfunction status: with acute organ dysfunction Severe sepsis acute organ dysfunction type: acute respiratory failure Acute respiratory failure type: with hypoxia Severe sepsis shock status: without septic shock Qualified Code(s): A41.9 - Sepsis, unspecified organism; R65.20 - Severe sepsis without septic shock; J96.01 - Acute respiratory failure with hypoxia Is this a current diagnosis for this admission?: Yes (8) Anemia Qualifiers: Anemia type: iron deficiency Is this a current diagnosis for this admission?: Yes (9) Dehydration Is this a current diagnosis for this admission?: Yes (10) Leukopenia Qualifiers: Leukopenia type: other Qualified Code(s): D72.818 - Other decreased white blood cell count Is this a current diagnosis for this admission?: Yes (11) Hypotension Is this a current diagnosis for this admission?: Yes (12) Prolonged Q-T interval on ECG Is this a current diagnosis for this admission?: Yes - Plan Summary Summary: 01/31/2020 COVID-19 pneumonia with respiratory failure-patient was still wheezy. Steroids changed to intravenous. We will try and taper the dexamethasone dose as soon as possible. Still heavily dependent on BiPAP and oxygen. Continue current regimen with increased steroid dosing and monitor closely. Sepsis with hypotension and dehydration resolved Intermittent EKGs to monitor QT interval 02/01/2020 COVID-19 pneumonia with respiratory failure-despite increased steroid dosing the patient is still wheezing. His delirium could be the result of the increase steroid dose but is likely multifactorial including his acute illness and history of dementia. I will decrease the Decadron to 8 mg twice daily and monitor closely. Respiratory failure-he is on high flow nasal cannula. He has been mostly above 90% however he will occasionally drop into the 80s. BiPAP is available if needed. Hypertension-blood pressures slightly higher than desired. Will increase amlodipine to 10 mg daily and monitor. Anemia-hemoglobin is improved slightly. It is 7.7 at the latest check. We will continue to monitor. 02/02/2020 Patient still requires significant support to maintain oxygen saturations greater than 90%. He is currently on CPAP with a pressure of 6 and FiO2 100%. I will increase the pressure to 10 and try and wean the FiO2. His pulse ox does occasionally drop below 80 him we will continue to monitor closely. The Decadron was reduced to 8 mg yesterday. Fortunately today I did not detect any wheezing. We will continue to decrease the Decadron. Hemoglobin is 8.0 today up from 7.7. He may benefit from another unit of packed red blood cells to help oxygenation. We will need to balance this against the net fluid status. I will check his hemoglobin tomorrow and reassess. 04/04/2020-corrected date 02/03/2020 The patient is exhibiting significantly increasing work of breathing. Despite increasing the CPAP pressure to 10 he remains with an FiO2 of 100%. Despite this his oxygen saturations have remained in the 80s. His hemoglobin is up to 8.2 with a hematocrit of 23.9. I had a long discussion with the patient's . With the patient's current condition and explained that the BiPAP is very close to intubation and it is not working therefore I did not feel that intubation would be any better. In fact intubating a patient is traumatic and would be more uncomfortable. I explained that we would try and give Lasix, morphine and a unit of packed red blood cells. She stated clearly that she did not want him to suffer. In fact she reported that her mother, who of cancer, had a window of clarity but then the next day. Interestingly she states that she did talk to her last night however he never got off of the CPAP and so I do not see how that is possible. I told her that I would call her back. I did briefly describe comfort measures. Based on his response to each intervention I can further gauge his viability however his prognosis is grave at this time. I did change his status to DO NOT INTUBATE based on my discussion with the patient's . I did look for the living will that she states she brought in but have not been able to find it as yet. 02/03/2020-7:30 PM There was called to the bedside. The patient exhibited a pulse oximetry in the 30s and was bradycardic. At 18:56 the patient was unresponsive. No audible pulse noted. No spontaneous respirations. No electrical activity on telemetry. I did call the patient's to let her know. The patient's nurse had called already. I expressed my condolences.
== END 2020-02-03 20:12 | disposition expired | DRG 177 ==
LOC: ER 13:19 → EH 01-21 10:57 → 3N 01-21 15:23
PROVIDERS: ADMIT Family Medicine; ATTEND Hospitalist
PROC: XW033E5 Introduction of Remdesivir Anti-infective into Peripheral Vein, Percutaneous Approach, New Technology Group 5 (ICD-10-PCS; principal; 2020-01-23)
PROC: XW13325 Transfusion of Convalescent Plasma (Nonautologous) into Peripheral Vein, Percutaneous Approach, New Technology Group 5 (ICD-10-PCS; 2020-01-24)
PROC: 30233N1 Transfusion of Nonautologous Red Blood Cells into Peripheral Vein, Percutaneous Approach (ICD-10-PCS; 2020-01-31)
PROC: 30233N1 Transfusion of Nonautologous Red Blood Cells into Peripheral Vein, Percutaneous Approach (ICD-10-PCS; 2020-02-03)
DX: U07.1 COVID-19 (principal); J96.01 Acute respiratory failure with hypoxia; R65.20 Severe sepsis without septic shock; J69.0 Pneumonitis due to inhalation of food and vomit; G93.41 Metabolic encephalopathy; A41.9 Sepsis, unspecified organism; E87.1 Hypo-osmolality and hyponatremia; F03.90 Unspecified dementia, unspecified severity, without behavioral disturbance, psychotic disturbance, mood disturbance, and anxiety; Z51.5 Encounter for palliative care; E86.0 Dehydration; D72.819 Decreased white blood cell count, unspecified; R94.31 Abnormal electrocardiogram [ECG] [EKG]; D50.9 Iron deficiency anemia, unspecified; I10 Essential (primary) hypertension; I25.10 Atherosclerotic heart disease of native coronary artery without angina pectoris; E66.01 Morbid (severe) obesity due to excess calories; H91.90 Unspecified hearing loss, unspecified ear; R31.9 Hematuria, unspecified; Z87.891 Personal history of nicotine dependence; Z68.35 Body mass index [BMI] 35.0-35.9, adult
CPT/HCPCS: 36415; 36430; 36600; 71045; 80048; 80053; 81001; 82533; 82550; 82607; 82728; 82746; 82803; 82962; 83540; 83550; 83605; 83615; 83880; 84443; 84484; 85025; 85027; 85045; 85379; 86140; 86850; 86900; 86901; 86920; 87040; 87077; 87150; 87186; 87635; 87804; 93005; 93010; 94640; 94660; 96361; 96365; 96367; 99285; C9803; J0456; J0692; J0696; J1100; J1170; J1630; J1644; J1650; J1940; J2060; J2270; J2920; J3370; J3486; J3490; J7030; J7040; J7050; J7060; J7120; J7121; P9016